=== PATIENT | female | born 1960 | race Caucasian/White ===

== ENCOUNTER → 2017-02-12 | Day surgery (SDC) | payer MEDICARE, OTHER ==
[~2017-02-12] MED LIST: ATORVASTATIN CA80 MG PO; CLOP75TA PO; FOLI1TAB16 PO; FURO20TA3 PO; GABA-586 PO; HYDROmorphone 2 MG/ML VIAL IV PRN; IV RINGERS,LACTATED 1000ML 1,000 ML IV SCH; Imdur PO; LANS30CA PO; LIDOCAINE 1% 1 ML SYRINGE. ID PRN; LIDOCAINE 2% PF Vial for OR 5 ML VIAL. ONE; MORPHINE SULFATE 2 MG/ML DISP.SYRIN. IV PRN; NITR2.5C3 PO; OMEP40CA5 PO; ONDANSETRON PF 4 MG/2 ML VIAL. IV PRN; OXYB5TAB7 PO; PREG75CA PO; PROCHLORPERAZINE 10 MG/2 ML VIAL. IV PRN; PROPOFOL 40 ML IV ONE; TETRACAINE 0.5% OPHTH SOLUTION 4ML BOTTLE. OD ONE; fentaNYL PF VIAL 100 MCG/2 ML VIAL IV PRN
[2017-02-12 08:51] VITALS: BP 94/63
--- NOTE | 2017-02-13 03:07 | HP ---
ADMIT DATE: 02/12/2017 REFERRING PHYSICIAN: Len Olivia MD HISTORY OF PRESENT ILLNESS: A 56-year-old female whose past medical history is significant for hypothyroidism, gastroesophageal reflux disease as well as hyperlipidemia, organic heart disease, is seen with dysphagia. She has had increased difficulties with solids in the past 6 weeks and ____ location. Reflux has been controlled with Prevacid 30 mg daily. She does not drink or smoke at this time, but does use caffeine. She has risk factors for reflux. Previous labs including thyroid function tests and complete metabolic profile were without significant abnormalities. She also notes diarrhea with meals. There has been no ____ travel while work or consumption of recent antibiotics. She has lost 21 pounds in the past month. There has been no bleeding. There is no family history of colon cancer or colon polyps. With the continued symptoms, she requests additional evaluation. PAST MEDICAL HISTORY: Hyperlipidemia, organic heart disease, gastroesophageal reflux disease, hypertension. ALLERGIES: None. MEDICATIONS: Include atorvastatin, Plavix, folic acid, furosemide, gabapentin, pravastatin, nitroglycerin, oxybutynin, Lyrica and Imdur. SOCIAL HISTORY: She is an ex-smoker. FAMILY HISTORY: Noncontributory. REVIEW OF SYSTEMS: Per records. PHYSICAL EXAMINATION: GENERAL: Reveals a well-nourished, well-developed female who is alert and conversant, in no acute distress. VITAL SIGNS: Temperature is 97.7, pulse 97, respirations 20. HEENT: Normocephalic and atraumatic head. Pupils and extraocular muscles not tested. Sclerae anicteric. NECK: Supple. LUNGS: Clear. CARDIOVASCULAR: Reveals S1, S2 without S3, S4 or appreciable murmur. ABDOMEN: Reveals a soft abdomen, normal bowel sounds without appreciable hepatosplenomegaly with epigastric tenderness to deep palpation. EXTREMITIES: Reveals no cyanosis, clubbing or edema. IMPRESSION AND PLAN: 1. Dysphagia with heartburn. Differential includes Schatzki's ring, eosinophilic esophagitis secondary to Neely's malignancy as well as extrinsic compression. We will recommend upper endoscopy to further assess her symptoms, possible biopsy and dilatation. Risks and benefits of procedure have been discussed with the patient who is willing to proceed at this time. 2. Diarrhea, weight loss. Differential includes celiac, inflammatory bowel disease, malabsorption, colon polyps, colon cancer among others, collagenous colitis. Therefore, I recommend colonoscopy to further assess. Risks and benefits have been discussed with the patient who is willing to proceed at this time. I would like to thank Dr. Olivia for allowing us to consult and participate in the patient's care. SAIMA TINSLEY MD DR: YELITZA/nova JOB#: [id number] / [id number] LEN Michaels MD
--- NOTE | 2017-02-13 07:02 | ACF ---
Admit Criteria Forms Admit Criteria Forms Admit Criteria Forms ABDOMINAL PAIN Clinical Indications for Admission to Inpatient Care (Place 'X' for any and all applicable criteria): Admission is indicated for ANY ONE of the following(1)(2)(3)(4)(5): [X]I. Inpatient admission required rather than observation care (Also use Abdominal Pain: Observation Care, as appropriate) because of ANY ONE of the following: [X]a) Severe pain requiring acute inpatient management [ ]b) Identification of etiology/finding that requires inpatient care (eg, aortic dissection, free air) [ ]c) Absent bowel sounds with complete ileus(6) [ ]d) Suspected toxic megacolon [ ]e) Severe electrolyte abnormalities requiring inpatient care [ ]f) High fever or infection requiring inpatient admission as indicated by ANY ONE of following(7)(8): [ ] i) Appropriate outpatient or observational care antimicrobial treatment unavailable, not effective, or not feasible [ ] ii) Documented bacteremia [ ] iii) Temperature > 104.9 degrees F (oral) [ ] iv) T >103.1 F (oral) or < 96.8 F(rectal) that does not respond to all emergency treatment measures [ ]g) Signs of intestinal obstruction [B] [ ]h) Hemodynamic instability [ ]i) IV fluid to replace significant ongoing losses (greater than 3 L/m2 per day) (12)(13) [ ]j) Percutaneous or open drainage (eg, abscess, biliary tract ) procedures [ ]k) Parenteral nutrition regimen that must be implemented on inpatient basis [ ]l) Other condition,treatment or monitoring requiring inpatient admission. [ ]II. Peritoneal signs present [ ]III. Surgery needed that cannot be performed on an ambulatory basis. [ ]IV. Evaluation requires patient to not eat or drink for extended period ( eg, more than 24 hours). [ ]V. Contraindications and/or Inappropriate clinical situations for Observational Care in patients with abdominal pain, when ANY ONE of the following is required: [ ]a) Thorough evaluation is required to prevent catastrophic events due to delays in diagnosing (e.g.Mesenteric ischemia) 1,3 [ ]b) Patient with severe pathology or with chronic symptoms unlikely to improve in the ED stay (3) [ ]. General contraindications and/or Inappropriate clinical situations for Observational Care in patients with abdominal pain, when ANY ONE of the following is required: [ ]a) Prediction of prolongation of LOS based on ANY ONE of the following may be considered as a contraindication for observational care 2, 3, 4, 5, 6, 7, 8, 9, 10, 11 [ ]i) Age > 65 yrs. [ ]ii) Patient arriving by ambulance [ ]iii) Patient with high acuity [ ]iv) Patient requiring vital sign monitoring [ ]v) Patient on IV medication [ ]b) Systolic blood pressures 180mmHg 3,12 [ ]c) Patient with altered mental status including delirium and other alteration of consciousness, (3) [ ]d) Patient whose discharge disposition will be to a assisted home or rehabilitation home should not be managed in Emergency Department Observation Unit. CMS rule requires 3 days hospital stay before such placement.3,13 [ ]e) Patient with failure to thrive due to broad array of etiologies 3,16,17 [ ]f) Inability to ambulate 3,14 Extended stay beyond goal length of stay may be needed for(2)(3): [ ]a) Persistent abdominal pain with suspected intra-abdominal process [ ]b) Diagnosed condition requiring continued stay (e.g., pancreatitis, complicated diverticulitis) [ ]c) Surgery (e.g., colectomy) The original [employer] content created by [employer] has been revised. The portions of the content which have been revised are identified through the use of italic text or in bold, and [facility] has neither reviewed nor approved the modified material.All other unmodified content is copyright [employer]. Please see references footnoted in the original [facility] edition 2016 MERCEDES HART Feb 13, 2017 07:02
--- NOTE | 2017-02-14 11:23 | PATHOLOGY ---
PATHOLOGY REPORT * * * * * * * * FINAL DIAGNOSIS: A. Duodenum, "duodenal biopsy rule out celiac disease": - Mild chronic non-specific duodenitis with mildly increased lamina propria inflammation. - The villous pattern is not blunted and diagnostic features of sprue are not seen. B. Colonic mucosa, "random colon biopsy": - Findings consistent with microscopic colitis. COMMENT: The colonic mucosa reveals increased lamina propria inflammation with increased intraepithelial lymphocytes. Rare crypts reveal occasional neutrophils. These findings are consistent with microscopic colitis. Due to the presence of few neutrophils in the crypts, focal active/infectious colitis is also in the differential. Early inflammatory bowel disease cannot be entirely ruled out. Suggest clinical and radiological correlation. ([facility]; d/t: 02/14/17) REPORT ELECTRONICALLY SIGNED BY: Michael Arnold M.D. DATE/TIME: 02/14/2017 11:22 * * * * * * * * GROSS PATHOLOGY: A. Received in formalin labeled "Anastasia Bell, duodenal biopsy, rule out celiac," are seven segments of calderon soft tissue measuring 1.0 x 1.0 x 0.2 cm in aggregate dimensions and ranging from 0.1 to 0.4 cm in maximum dimension. The specimen is submitted entirely in cassette A1. B. Received in formalin labeled "Anastasia Bell, random colon biopsy," are multiple (greater than 10) segments of calderon soft tissue measuring 1.4 x 0.7 x 0.3 cm in aggregate dimensions and ranging from 0.1 to 0.6 cm in maximum dimension. The specimen is submitted entirely in cassette B1. ([facility]; 02/13/2017) INITIAL CPT CODE(S): A; 50814 B; 30031 Professional services performed by [facility] at [address] [address] Technical services performed by [facility] at [address] [place] [address], [address], [place] [address]. SPECIMEN(S) RECEIVED: A.Duodenal biopsy, r/o celiac B.Random colon biopsy CLINICAL HISTORY: Abdominal pain, r/o celiac PATIENT: ANASTASIA BELL /AGE: 502/23/1960 (Age: 56) PATIENT #: [id number] ALT CASE #: SPECIMEN COLLECTION DATE: 02/12/2017 SPECIMEN RECEIVED DATE: 02/12/2017 [facility] - [id number] [address] - PHONE: [phone] * * * END OF REPORT * * *
== END | disposition home or self-care (01) ==
LOC: ENDOS 06:25
PROVIDERS: ATTEND Internal Medicine Gastroenterology
DX: K64.0 First degree hemorrhoids (principal); K22.2 Esophageal obstruction; K29.50 Unspecified chronic gastritis without bleeding; E78.00 Pure hypercholesterolemia, unspecified; J44.9 Chronic obstructive pulmonary disease, unspecified; M19.90 Unspecified osteoarthritis, unspecified site
CPT/HCPCS: 43239; 43450; 45380; 88305; 99156; 99157; J2704

== ENCOUNTER → 2019-09-07 | Outpatient (CLI) | payer MEDICARE, OTHER ==
[2017-02-12 08:51] VITALS: BP 94/63
[~2019-09-07] MED LIST changes: +BUPIVACAINE MPF 0.5% 10 ML VIAL for KCIC. IM ONE; -GABA-586 PO; +GABA300C18 PO; -HYDROmorphone 2 MG/ML VIAL IV PRN; +IOHEXOL 300 MG/ML 50 ML VIAL. INT ART ONE; -IV RINGERS,LACTATED 1000ML 1,000 ML IV SCH; -LIDOCAINE 1% 1 ML SYRINGE. ID PRN; +LIDOCAINE 1% Multi-Dose 20 ML VIAL. ID ONE; -LIDOCAINE 2% PF Vial for OR 5 ML VIAL. ONE; -MORPHINE SULFATE 2 MG/ML DISP.SYRIN. IV PRN; +OMEP40CA45 PO; -OMEP40CA5 PO; -ONDANSETRON PF 4 MG/2 ML VIAL. IV PRN; +OXYB5TAB10 PO; -OXYB5TAB7 PO; -PROCHLORPERAZINE 10 MG/2 ML VIAL. IV PRN; -PROPOFOL 40 ML IV ONE; -TETRACAINE 0.5% OPHTH SOLUTION 4ML BOTTLE. OD ONE; -fentaNYL PF VIAL 100 MCG/2 ML VIAL IV PRN; +methylPREDNISolone ACETATE 40 MG/ML VIAL. INT ART ONE
--- NOTE | 2019-09-07 15:20 | KCIC ---
EXAM: FLUOROSCOPY GUIDED RIGHT HIP steroid injection History: Degenerative changes, pain COMPARISON: None available TECHNIQUE: Consent: An informed consent was obtained from the patient prior to the procedure. Appropriate time out procedures were performed. The skin was prepped and draped in the usual fashion under aseptic precautions. 1% lidocaine was utilized for local anesthesia. Under fluoroscopic guidance a 22 gauge long spinal needle was used to access the hip joint. A mixture of 4 mL lidocaine, 4 mL of Omnipaque 300, 4 mL of bupivacaine and 80 mg of Depo-Medrol was injected. 22 seconds of total fluoroscopy time was utilized. Total fluoroscopic images 1. No immediate complications. IMPRESSION: Technically successful fluoroscopic-guided right hip arthrogram Electronically signed by: Juan Francisco Rosas MD (09/07/2019 3:17 PM) [facility]2
== END | disposition home or self-care (01) ==
LOC: KCIC 12:38
PROVIDERS: ATTEND Orthopaedic Surgery Sports Medicine
DX: M25.551 Pain in right hip (principal)
CPT/HCPCS: 20610; 77002; J1030; Q9967

== ENCOUNTER → 2019-10-07 | Outpatient (CLI) | payer MEDICARE, OTHER ==
[2017-02-12 08:51] VITALS: BP 94/63
[~2019-10-07] MED LIST changes: -BUPIVACAINE MPF 0.5% 10 ML VIAL for KCIC. IM ONE; -IOHEXOL 300 MG/ML 50 ML VIAL. INT ART ONE; -LIDOCAINE 1% Multi-Dose 20 ML VIAL. ID ONE; +NITR2.5C12 PO; -NITR2.5C3 PO; -methylPREDNISolone ACETATE 40 MG/ML VIAL. INT ART ONE
--- NOTE | 2019-10-07 13:07 | KCIC ---
MRI Lumbar Spine without contrast History: Lumbar degenerative disc disease with previous surgery, low back pain into the kidneys bilaterally Technique: Multiplanar, multi sequential noncontrast MR imaging was performed of the lumbar spine. Comparison: February 28, 2016 Findings: Lumbar vertebral body stature is maintained. Mild grade 1 anterior spondylolisthesis at L3-4 is slightly greater. There is moderate to severe degenerative disease greater on the left at L4-5 with associated endplate changes seen previously, mild degenerative disc disease at L3-4, and mild disc desiccation L1-2. Conus terminates at T12-L1. There is no significant marrow edema. There is again likely hemangioma of the posterior left L2 vertebral body. L1-L2: Spinal canal and neural foramina are adequate. L2-L3: There is prominence of posterior epidural fat centrally and mild facet degenerative change. There is negligible posterior bulge. Spinal canal is overall adequate. Neural foramina are adequate. L3-L4: There is moderate to severe facet degenerative change and jhmv-bd-ndqzbcrq buckling of the ligamentum flavum. There is partial uncovering of the posterior aspect of the disc due to spondylolisthesis. There is somewhat increased overall moderate spinal stenosis including narrowing of the lateral recesses bilaterally greater on the left. Left neural foramen is adequate. There is mild narrowing of the right neural foramen. L4-L5: There again has been right laminectomy There is again negligible posterior bulge. There is facet degenerative change. There is similar mpfe-cy-ebhlnohj narrowing of the far lateral recess, very mild narrowing of the far right lateral recess. Right neural foramen is adequate. There is again feyo-io-gthsddjc narrowing of the left neural foramen. L5-S1: There is minimal buckling of the ligamentum flavum and facet degenerative change. There is again prominence of epidural fat in the lateral recesses bilaterally. Spinal canal is overall adequate. There is minimal narrowing of the left neural foramen, right neural foramen overall adequate. Impression: 1. Comparing with the 2016 exam, minimal grade 1 anterior spondylolisthesis L3-4 is somewhat greater, increased overall moderate spinal stenosis at this level. There is similar absy-do-jkknsuuw narrowing of the far left lateral recess at L4-5, minimal narrowing of the far right lateral recess at this level. There is again uaxk-ws-txriokhe narrowing of the left L4-5 neural foramen. There is degenerative disc disease greatest at L4-5. Electronically signed by: Thor Gottlieb MD (10/07/2019 1:04 PM) [facility]1
== END | disposition home or self-care (01) ==
LOC: KCIC MRI 12:04
PROVIDERS: ATTEND Orthopaedic Surgery Sports Medicine
DX: M43.16 Spondylolisthesis, lumbar region (principal); M51.36 Other intervertebral disc degeneration, lumbar region; M48.07 Spinal stenosis, lumbosacral region; Z90.49 Acquired absence of other specified parts of digestive tract
CPT/HCPCS: 72148

== ENCOUNTER → 2019-11-11 | Outpatient (CLI) | payer MEDICARE, OTHER ==
[2017-02-12 08:51] VITALS: BP 94/63
[~2019-11-11] MED LIST changes: +ASPI81TA50 PO; +CHOL200059 PO; +FOLI0.8C PO; +IBUP-1027 PO; +ISOS60TA2 PO; +LEVO50TA5 PO; +NIAC500C6 PO; +SULF500T36 PO
--- NOTE | 2019-11-11 17:14 | PAIN ---
DATE OF SERVICE: 11/11/2019 INITIAL CONSULTATION FOR PAIN CLINIC CHIEF COMPLAINT: Low back and right greater than left lower extremity pain. HISTORY OF PRESENT ILLNESS: This is a 59-year-old female who presents with history of pain for about 1 year or so in the bilateral hips, worse on the right than the left and radiating into the lower extremities. The patient has been worked up with her orthopedic surgeon with x-rays and treatment. She has had intra-articular hip joint injections in the past without help significantly. She had some here recently, which were not helpful at all. The patient reports she has been to physical therapy as well, which is not helpful and is difficult to do some of the exercises because of the pain in the back and the leg, mostly in the right lower extremity, but also in the left, across the low back into the both posterior hips, lateral anterior thighs, anterior medial thigh, medial lower leg, medial groin on the right side into the anterior aspect of the lower legs to the ankles. The patient reports right hip is worse. She does have a right hip injection, which was not helpful as noted. The patient did have MRI scan of the lumbar spine after that, however, and shows previous surgery at L4-L5 and compared with the ____ 2016, spondylolisthesis at L3-L4, somewhat greater increased overall moderate spinal stenosis at L3-L4 level somewhat in qxxc-vs-hiymbtwg narrowing of the far left lateral recess at L4 foramen, minimal narrowing of the far right lateral recess at that level and again mild to moderate narrowing of the left L4-L5 neural foramen with degenerative disk disease, greatest at L4-L5. The patient reports a disability rating from 0-10, 10 being the worst, is an 8 with family and home responsibilities, recreation and life support activities, 6 with social activity and sexual behavior, 7 with occupational activity, 4 with self-care activities. The patient reports the pain awakens her from sleep at least every 20 minutes at night, does not affect her bowel or bladder control, but does affect her ability to walk. She is not using any assistive devices, however she has again been through physical therapy, was not helpful and doing exercise currently, which is not helping decrease the pain significantly. The patient reports no loss of motor function, but significant fatigability of the lower extremities, especially on the right side with walking, better with sitting or lying down, but again waking her from sleep frequently. PAST MEDICAL HISTORY: Significant for hypothyroidism, COPD, coronary artery disease with stents placed in 2012, gastroesophageal reflux, colitis, falls, fibromyalgia, dry skin. PREVIOUS SURGERY: Includes sinus surgery, cholecystectomy and lumbar laminectomy in 2012 at L4-L5. CURRENT MEDICATIONS: Include levothyroxine, daily baby aspirin, vitamin D3, folic acid, isosorbide, nitroglycerin p.r.n. ice and ibuprofen, folic acid, sulfasalazine, Plavix, atorvastatin, oxybutynin and lansoprazole. ALLERGIES: The patient has no known drug allergies. FAMILY HISTORY: Significant for heart disease and diabetes. SOCIAL HISTORY: The patient drinks alcohol about 3 alcoholic drinks a week, does not smoke, does not use any illegal, illicit or recreational drugs. Lives with her spouse, lives locally in [place], [place]. REVIEW OF SYSTEMS: Negative except for those items mentioned in history of present illness. All systems are reviewed and is otherwise negative. It is complete, full and well documented on the patient's chart. PHYSICAL EXAMINATION: VITAL SIGNS: The patient's blood pressure is 143/70, pulse is 77, respirations 16, temperature 97.2 degrees Fahrenheit, height is 5 feet 6 inches, weight is 210 pounds. GENERAL: The patient is awake, alert, oriented, appropriate, very pleasant demeanor. HEENT: Shows normocephalic, atraumatic. Extraocular movements are intact and symmetrical. Oral cavity: Mucous membranes moist and pink. Dentition is intact. NECK: Shows anterior throat supple without palpable lymphadenopathy noted. Swallow reflex symmetrical. CHEST: Shows normal on inspection. Breath sounds clear to auscultation bilaterally. HEART: Shows S1, S2 clear. No murmurs auscultated. ABDOMEN: Soft, nontender, nondistended. No palpable organomegaly is noted. No rebound or guarding demonstrated. BACK: Shows spine grossly in the midline. Normal appearing thoracic kyphosis, some minor flattening of lumbar lordotic curvature. Lumbar paraspinous muscle shows symmetrical on inspection, on palpation shows some moderate tenderness diffusely bilaterally and has a well-healed surgical scar in the midline. No specific trigger points or radiation. No atrophy, hypertrophy, no asymmetry. The patient shows no tenderness over the spinous processes, sacrum or sacroiliac regions. The patient has good rotational motion of lumbar spine, laterally greater than 10 degrees right and left as well as extension greater than 10 degrees, forward flexion at 45 degrees without significant pain reported. EXTREMITIES: Lower extremities show deep tendon reflexes at 1+ in the patellar and tendo calcaneus tendons. Motor exam is strong with 5/5 dorsiflexion, extension, quadriceps and hamstring flexion. Peripheral pulses are 1+ posterior tibia. No peripheral edema is noted. Lower extremities are warm and dry to touch, equal in color and appearance. Straight leg raise noted to be negative for reproduction of radicular symptoms bilaterally. Gaenslen's and Pierce's maneuvers are grossly negative as well bilaterally. The patient is able to stand, stand on her toes without significant difficulty or loss of balance, walks with a normal-appearing gait, does not appear to favor the right lower extremity significantly, not using any assistive devices. SKIN: The patient's skin shows warm and dry, good turgor. No edema. No rashes or bruises. IMPRESSION: 1. This is a 59-year-old female with about 1-year history of increasing pain, right greater than left hips and lower extremities. 2. MRI scan of lumbar spine as noted. 3. Hypertension. 4. Chronic obstructive pulmonary disease. 5. Arthritis. 6. Fibromyalgia. PLAN: Options were discussed with the patient and the patient's spouse who accompanies her to visit today. We discussed conservative medical managements, continued physical therapies, interventional techniques. She would like to pursue interventional techniques as she is doing physical therapy and still doing exercises without significant benefit. We discussed a lumbar epidural steroid injection using description as well as anatomical models to describe the procedure. The patient will return after clearance is obtained from her wheelchair driver; however, to hold Plavix for 7 days. If this is deemed safe and appropriate, we will have her hold this and return for lumbar epidural steroid injection at that time. EMILIANO MALDONADO MD DR: JENNIFER/nova JOB#: [id number] / [id number] EZRA Michaels MD
== END | disposition home or self-care (01) ==
LOC: PNCL 09:01
PROVIDERS: ATTEND Anesthesiology
DX: M43.16 Spondylolisthesis, lumbar region (principal); M48.061 Spinal stenosis, lumbar region without neurogenic claudication; M79.605 Pain in left leg; M54.5 Low back pain; M79.604 Pain in right leg; M51.36 Other intervertebral disc degeneration, lumbar region; E03.9 Hypothyroidism, unspecified; J44.9 Chronic obstructive pulmonary disease, unspecified; I25.10 Atherosclerotic heart disease of native coronary artery without angina pectoris; K21.9 Gastro-esophageal reflux disease without esophagitis; Z90.49 Acquired absence of other specified parts of digestive tract
CPT/HCPCS: G0463

== ENCOUNTER → 2019-11-19 | Outpatient (CLI) | payer MEDICARE, OTHER ==
[2017-02-12 08:51] VITALS: BP 94/63
[~2019-11-19] MED LIST changes: +IOHEXOL 180 MG/ML 10 ML VIAL. ONE; +methylPREDNISolone ACETATE 40 MG/ML VIAL. ONE; +methylPREDNISolone ACETATE 80 MG/ML VIAL. ONE
--- NOTE | 2019-11-19 11:00 | PAIN ---
DATE OF SERVICE: 11/19/2019 PROGRESS NOTE FOR PAIN CLINIC DIAGNOSES: Lumbar radiculopathy with lumbar degenerative disk disease, lumbar spinal stenosis and lumbar post-laminectomy syndrome. HISTORY OF PRESENT ILLNESS: The patient is a 59-year-old female who returns for followup status post initial evaluation and holding her Plavix now for 7 days for lumbar epidural steroid injection today, the patient would like to proceed, reports still pain in the low back and into the bilateral lower extremities, posterior gluteus, posterolateral thigh, lateral anterior thigh, medial thigh, medial left groin. The patient reports it is aching, sharp, dull, shooting, burning, cramping across the low back, stabbing in the legs, on and off in intensity, worse with activity, standing, walking, changing positions. The patient reports it is a 9 on a scale of 10 at its worst in the past week, 7 on average, 3 at its least and is a 7 today. The patient reports no new motor or sensory deficits, no new bowel or bladder incontinence, awakens her from sleep occasionally. She can easily reposition and get back to sleep. PHYSICAL EXAMINATION: VITAL SIGNS: The patient's blood pressure 166/103, pulse 71, respirations 16, temperature 98.1 degrees Fahrenheit, height is 5 feet 6 inches, weight is 210 pounds. GENERAL: The patient is awake, alert, oriented, appropriate, very pleasant demeanor. HEENT: Shows normocephalic, atraumatic. Extraocular movements are intact and symmetrical. Oral cavity: Mucous membranes moist and pink. Dentition is intact. NECK: Shows anterior throat supple without palpable lymphadenopathy noted. Swallow reflex symmetrical. CHEST: Shows normal on inspection. Breath sounds are clear to auscultation bilaterally. HEART: Shows S1, S2 clear. No murmurs auscultated. ABDOMEN: Soft, nontender, nondistended. No palpable organomegaly is noted. No rebound or guarding demonstrated. BACK: Shows spine grossly in the midline. Normal appearing thoracic kyphosis and minor flattening of lumbar lordotic curvature with well-healed surgical scarring noted. The patient's back shows good rotation of motion, however, both laterally as well as extension and flexion without significant increase in pain. EXTREMITIES: The patient's lower extremities show deep tendon reflexes 1+ in the patellar and tendo calcaneus tendons. Motor exam is strong with 5/5 dorsiflexion, extension, quadriceps and hamstring flexion symmetrical. Peripheral pulses are 1+ posterior tibia. No peripheral edema is noted bilaterally. Options were discussed with the patient. The patient's old chart was reviewed as her current medication regimen updated. Current review of systems updated today as well. We will proceed with a lumbar epidural steroid injection today with fluoroscopic guidance. Risks were again discussed including, but not limited to bleeding, infection, possibility of epidural hematoma, subsequent neurological compromise, dural puncture, headaches, spinal cord and/or nerve damage, side effects of steroid medication and poor results regarding pain control. The patient understands and wished to proceed. The patient will return to clinic in approximately 2 weeks for followup. She was counseled on return appointment, activity level and side effects to be aware of. DIAGNOSES: Lumbar radiculopathy with lumbar degenerative disk disease, lumbar spinal stenosis and post-lumbar laminectomy syndrome. PROCEDURE: Lumbar epidural steroid injection, translaminar approach L3-L4 level using C-arm fluoroscopic guidance under sterile prep and drape using local anesthetic. MEDICATION INJECTED: A total of 120 mg Depo-Medrol plus 10 mL of preservative-free normal saline and 2 mL of contrast. CONDITION AT DISCHARGE: Stable. The patient tolerated the procedure well, had no complications. EMILIANO MALDONADO MD DR: JENNIFER/nova JOB#: [id number] / [id number]
== END | disposition home or self-care (01) ==
LOC: PNCL 08:57
PROVIDERS: ATTEND Anesthesiology
DX: M51.16 Intervertebral disc disorders with radiculopathy, lumbar region (principal); M48.061 Spinal stenosis, lumbar region without neurogenic claudication; M96.1 Postlaminectomy syndrome, not elsewhere classified; Z98.890 Other specified postprocedural states
CPT/HCPCS: 62323; J1030; J1040; Q9965

== ENCOUNTER → 2020-03-08 | Outpatient (CLI) | payer MEDICARE, OTHER ==
[2017-02-12 08:51] VITALS: BP 94/63
[~2020-03-08] MED LIST changes: -NITR2.5C12 PO; +NITR2.5C8 PO; +PREG-9 PO; -PREG75CA PO
--- NOTE | 2020-03-08 10:04 | PAIN ---
DATE OF SERVICE: 03/08/2020 PROGRESS NOTE FOR PAIN CLINIC DIAGNOSES: Lumbar radiculopathy with lumbar degenerative disk disease and lumbar spinal stenosis, lumbar post-laminectomy syndrome. HISTORY OF PRESENT ILLNESS: The patient is a 60-year-old female who returns for followup status post lumbar epidural steroid injection x 1 on 11/19/2019. The patient reports she did very well with about 70-80% improvement. Pain is returning now over the past few weeks in the low back and right greater than left lower extremity, mostly in the anterior thigh, anterior medial thighs and groin on the right side as well as into the lower leg and knee, but mostly on the right, but present bilaterally. The patient reports it is aching, sharp, shooting into the legs, stabbing in the back, radiating at times and grabbing as well. The patient reports it is a 9 on a scale of 10 at its worst over the past week, 8 on average, 6 at its least and is a 6 today. The patient reports no new motor or sensory deficits. Initially, she was doing much better with walking, doing work activities, household activities, traveling with greater ease and comfort. The patient reports it awakens her from sleep, but not more than once about every 6 hours per night. The patient reports no new motor or sensory deficits, no bowel or bladder incontinence or other complaints. PHYSICAL EXAMINATION: VITAL SIGNS: The patient's blood pressure 186/91, pulse 75, respirations 18, temperature 98.2 degrees Fahrenheit, height is 5 feet 6 inches, weight is 218 pounds. GENERAL: The patient is awake, alert, oriented, appropriate, very pleasant demeanor. HEENT: Shows normocephalic, atraumatic. Extraocular movements are intact and symmetrical. Oral cavity shows mucous membranes moist and pink. Dentition is intact. NECK: Shows anterior throat supple without palpable lymphadenopathy noted. Swallow reflex symmetrical. CHEST: Shows normal on inspection. Breath sounds clear to auscultation bilaterally. HEART: Shows S1, S2 clear. No murmurs auscultated. ABDOMEN: Soft, nontender, nondistended. No palpable organomegaly is noted. No rebound or guarding demonstrated. BACK: Shows spine grossly in the midline. Normal appearing thoracic kyphosis and lumbar lordotic curvature is slightly flattened with well-healed surgical scar noted. Lumbar paraspinous muscle shows symmetrical on inspection, on palpation shows some moderate tenderness diffusely bilaterally, but only diffusely without significant radiation. The patient has good rotational motion of lumbar spine, both laterally as well as extension and flexion without difficulty. EXTREMITIES: Lower extremities show deep tendon reflexes 1+ in the patellar and tendo calcaneus tendons. Motor exam is strong with 5/5 dorsiflexion, extension, quadriceps and hamstring flexion and symmetrical. Peripheral pulses are 1+ in the peripheral or in the posterior tibial. No peripheral edema bilaterally. Options were discussed with the patient. The patient's old chart was reviewed as her current medication regimen updated. Current review of systems updated today as well. We will proceed with a second in the series of lumbar epidural steroid injection today with fluoroscopic guidance. Risks were again discussed including, but not limited to bleeding, infection, possibility of epidural hematoma, subsequent neurological compromise, dural puncture, headaches, spinal cord and/or nerve damage, side effects of steroid medication and poor results regarding pain control. The patient understands and wished to proceed. The patient will return to clinic in approximately 2 weeks for followup. She was counseled on return appointment, activity level and side effects to be aware of. DIAGNOSES: Lumbar radiculopathy with lumbar degenerative disk disease, lumbar spinal stenosis and lumbar post-laminectomy syndrome. PROCEDURE: Lumbar epidural steroid injection, translaminar approach at the L3-L4 level using C-arm fluoroscopic guidance under sterile prep and drape using local anesthetic. MEDICATION INJECTED: A total of 120 mg Depo-Medrol plus 10 mL of preservative-free normal saline and 2 mL of contrast. CONDITION AT DISCHARGE: Stable. The patient tolerated the procedure well, had no complications. EMILIANO MALDONADO MD DR: JENNIFER/nova JOB#: [id number] / [id number]
== END | disposition home or self-care (01) ==
LOC: PNCL 09:00
PROVIDERS: ATTEND Anesthesiology
DX: M51.16 Intervertebral disc disorders with radiculopathy, lumbar region (principal); M48.061 Spinal stenosis, lumbar region without neurogenic claudication; M96.1 Postlaminectomy syndrome, not elsewhere classified
CPT/HCPCS: 62323; J1030; J1040; Q9965

== ENCOUNTER → 2020-07-14 | Outpatient (CLI) | payer MEDICARE, OTHER ==
[2017-02-12 08:51] VITALS: BP 94/63
--- NOTE | 2020-07-14 12:02 | PDOC ---
Progress Note - Pain Clinic Date of Service: DOS: DATE: 07/14/20 TIME: 11:59 Diagnosis: Dx: Lumbar radiculopathy with lumbar degenerative disc disease lumbar spinal stenosis and post lumbar laminectomy syndrome History or Present Illness: HPI: 60-year-old female returns follow-up status post lumbar epidurals injection x1. Last seen March 08, 2020. Patient reports he did very well about 90% improvement in the low back and bilateral lower extremity pain. Patient reports pain is been returning now over about the past 4 to 5 weeks in the low back bilateral lower extremities posterior gluteus posterior lateral thighs lateral anterior thighs anterior lower legs as well as some in the calves. Patient describes the pain is aching sharp and dull tingling burning cramping in the back with radiating pain that can be severe and constant with walking standing changing positions. Initially she was doing much better with distance walking doing household activities work activities traveling with greater ease and comfort, but now the pain is returning still does not awaken her from sleep at night much better with sitting or laying down. Patient reports no new motor or sensory deficits no new bowel or bladder incontinence reports her pain is a 9 on scale 10 is worse over the past week 8 on average for this least is a 5 today Physical Exam: VS: Blood pressure is 157/103 pulse 69 respirations 18 temperature 90.1 F height is 5 feet 6 inches weight is 202 pounds PE: PHYSICAL EXAMINATION: GENERAL: The patient is awake, alert, oriented, appropriate, very pleasant demeanor HEENT: Shows normocephalic, atraumatic. Extraocular movements are intact and symmetrical. NECK: Shows anterior throat supple without palpable lymphadenopathy noted. Swal low reflex symmetrical. CHEST: Shows normal on inspection. Breath sounds are clear bilaterally, no rales rhonchi wheezes auscultated. HEART: Shows S1, S2 clear. No murmurs auscultated. ABDOMEN: Soft, nontender, nondistended, obese. No palpable organomegaly is noted. No rebound or guarding demonstrated. BACK: Shows spine grossly in the midline. Normal-appearing cervical lordotic curvature. There is slightly increased thoracic kyphosis, some minor flattening of the lumbar lordotic curvature. Lumbar paraspinous muscles show symmetrical on inspection, on palpation shows some moderate tenderness diffusely throughout the upper, middle and lower distribution of the paraspinous muscles bilaterally, but without specific trigger points, without radiation of pain. The patient has good rotational motion of the lumbar spine, both laterally as well as extension and flexion without significant difficulty. No tenderness over the spinous processes, sacrum or sacroiliac regions. EXTREMITIES: Lower extremities show deep tendon reflexes 1+ in the patellar and tendo calcaneus tendons. Motor exam is 5 on a scale of 5 with right dorsiflexion, extension, quadriceps and hamstring flexion and 5/5 on the left. Peripheral pulses are 1+ posterior tibial. No peripheral edema is noted bilaterally. Lower extremities are warm and dry to touch, equal in color and appearance. SKIN: Shows warm and dry, good turgor. No edema. No sores, rashes or bruising throughout. Procedure: Procedure: Options were discussed with the patient. Patient will chart reviews her current medication regimen updated current review of systems updated today as well. We will proceed with a lumbar epidural steroid injection today with fluoroscopic guidance. Risks were discussed including but not limited to: Bleeding, infection, possibility of epidural hematoma and subsequent neurological compromise, dural puncture, headaches, spinal cord and/or nerve damage, side effects of steroid medication, and poor results regarding pain control. Patient understands wished to proceed. Patient will return to the clinic in approximate 2 weeks for follow-up. Patient was counseled as return appointment activity level and side effects to be aware of. Medication Injected: Med Injected: Procedure is lumbar epidural steroid injection under local anesthetic using sterile prep and drape at the L4-5 level using C-arm fluoroscopic guidance in both AP and lateral views medications injected is 120 mg Depo-Medrol + 10 mL preservative-free normal saline and 2 mL contrast- condition at discharge is stable patient tolerated procedure well had no complications. Condition at Discharge: Condition at Discharge: Patient discharged stable patient tolerated the procedure well and had no complications. EMILIANO MALDONADO MD Jul 14, 2020 12:02
== END | disposition home or self-care (01) ==
LOC: PNCL 10:34
PROVIDERS: ATTEND Anesthesiology
DX: M51.16 Intervertebral disc disorders with radiculopathy, lumbar region (principal); M48.061 Spinal stenosis, lumbar region without neurogenic claudication; K21.9 Gastro-esophageal reflux disease without esophagitis; J44.9 Chronic obstructive pulmonary disease, unspecified; E03.9 Hypothyroidism, unspecified; Z79.899 Other long term (current) drug therapy
CPT/HCPCS: 62323; J1030; J1040; Q9965

== ENCOUNTER → 2020-07-24 | Outpatient (CLI) | payer MEDICARE, OTHER ==
[2017-02-12 08:51] VITALS: BP 94/63
[~2020-07-24] MED LIST changes: -IOHEXOL 180 MG/ML 10 ML VIAL. ONE; -methylPREDNISolone ACETATE 40 MG/ML VIAL. ONE; -methylPREDNISolone ACETATE 80 MG/ML VIAL. ONE
--- NOTE | 2020-07-24 13:31 | CARD ---
MR#: [id number] Date of Study: 07/24/2020 Ordering Physician: OSMAN BYRNES, Referring Physician: OSMAN BYRNES, Tech: Alee Will SALEEM APPROVED REPORT EXAM: Two-dimensional and M-mode echocardiogram with Doppler and color Doppler. Other Information Quality : Good INDICATION Cardiac Disease: CAD 2D DIMENSIONS RVDd2.5 (2.9-3.5cm)Left Atrium(2D)3.6 (1.6-4.0cm) IVSd1.0 (0.7-1.1cm)Aortic Root(2D)2.5 (2.0-3.7cm) LVDd4.8 (3.9-5.9cm)LVOT Diameter2.3 (1.8-2.4cm) PWd1.0 (0.7-1.1cm)LVDs3.3 (2.5-4.0cm) FS (%) 32.0 %SV65.0 ml LVEF(%)60.0 (>50%) Aortic Valve AoV Peak Dk.139.7cm/sAoV VTI31.5cm AO Peak GR.7.8mmHgLVOT Peak Dk.123.3cm/s AO Mean GR.4mmHgAVA (VMAX)3.68cm2 NICK (VTI)3.70cm2 Mitral Valve MV E Uhhgcped74.3cm/sMV DECEL FRON573dr MV A Emrnmear238.7cm/sE/A Ratio0.9 Pulmonary Vein S1 Qavirosb32.2cm/sD2 Godscizr99.8cm/s LEFT VENTRICLE The left ventricle is normal size. There is normal left ventricular wall thickness. The left ventricu lar systolic function is normal. The Ejection Fraction is 55-60%. There is normal LV segmental wall m otion. Transmitral Doppler flow pattern is Grade I-abnormal relaxation pattern. RIGHT VENTRICLE The right ventricle is normal size. The right ventricular systolic function is normal. ATRIA The left atrium size is normal. The right atrium size is normal. The interatrial septum is intact wit h no evidence for an atrial septal defect or patent foramen ovale as noted on 2-D or Doppler imaging. AORTIC VALVE The aortic valve is calcified but opens well. Doppler and Color Flow revealed no significant aortic r egurgitation. There is no significant aortic valvular stenosis. MITRAL VALVE The mitral valve is calcified but opens well. There is no evidence of mitral valve prolapse. There is no mitral valve stenosis. Doppler and Color Flow revealed no mitral valve regurgitation noted. TRICUSPID VALVE The tricuspid valve is normal in structure and function. Doppler and Color Flow revealed no tricuspid valve regurgitation noted. There is no tricuspid valve stenosis. PULMONIC VALVE The pulmonic valve is not well visualized. Doppler and Color Flow revealed no pulmonic valvular regur gitation. There is no pulmonic valvular stenosis. GREAT VESSELS The aortic root is normal in size. The ascending aorta is mildly dilated at 3.4 cm The IVC is dilated and collapses <50% with inspiration. PERICARDIAL EFFUSION There is no evidence of significant pericardial effusion. Critical Notification Critical Value: No <Conclusion> The left ventricular systolic function is normal. The Ejection Fraction is 55-60%. There is normal LV segmental wall motion. Transmitral Doppler flow pattern is Grade I-abnormal relaxation pattern. There is no evidence of significant pericardial effusion. Signed by : Faraz Funk, Electronically Approved : 07/24/2020 13:30:38
== END | disposition home or self-care (01) ==
LOC: ECHO 09:48
PROVIDERS: ATTEND Internal Medicine Cardiovascular Disease
DX: I08.0 Rheumatic disorders of both mitral and aortic valves (principal); I10 Essential (primary) hypertension
CPT/HCPCS: 93306

== ENCOUNTER → 2020-10-02 | Outpatient (CLI) | payer MEDICARE, OTHER ==
[2017-02-12 08:51] VITALS: BP 94/63
[~2020-10-02] MED LIST changes: +IOHEXOL 180 MG/ML 10 ML VIAL. ONE; +methylPREDNISolone ACETATE 40 MG/ML VIAL. ONE; +methylPREDNISolone ACETATE 80 MG/ML VIAL. ONE
--- NOTE | 2020-10-02 11:25 | PDOC ---
Progress Note - Pain Clinic Date of Service: DOS: DATE: 10/02/20 TIME: 11:22 Diagnosis: Dx: Lumbar radiculopathy with lumbar degenerative disc disease lumbar spinal stenosis and lumbar postlaminectomy syndrome History or Present Illness: HPI: 60-year-old female returns follow-up status post lumbar epidural steroid traction x1 this series July 14, 2020. Patient reports that pain was decreased by about 50% in the low back bilateral lower extremities but returning now especially with standing sitting or changing positions with pain low back bilateral lower extremities lateral thighs anterior thighs medial thighs to the medial knees bilaterally right essentially equal to left patient reports pain to 7 on scale 10 is worse over the past week 5 on average 3 at its least is a 5 today. Patient reports no new motor or sensory deficits no new bowel or bladder incontinence or other complaints. Patient scribes pain as aching burning cramping sharp shooting in the back and radiating to the lower extremities. Physical Exam: VS: Blood pressure is 164/92 pulse 61 respirations 18 temperature 90.5 F height is 5 feet 6 inches weight is 206 pounds PE: PHYSICAL EXAMINATION: GENERAL: The patient is awake, alert, oriented, appropriate, very pleasant demeanor HEENT: Shows normocephalic, atraumatic. Extraocular movements are intact and symmetrical. Oral cavity: Mucous membranes moist and pink. NECK: Shows anterior throat supple without palpable lymphadenopathy noted. Swallow reflex symmetrical. CHEST: Shows normal on inspection. Breath sounds clear bilaterally. HEART: Shows S1, S2 clear. No murmurs auscultated. ABDOMEN: Soft, nontender, nondistended, obese. No palpable organomegaly is noted. No rebound or guarding demonstrated. BACK: Shows spine grossly in the midline. Normal-appearing cervical lordotic curvature. There is increased thoracic kyphosis, some minor flattening of the lumbar lordotic curvature. Lumbar paraspinous muscles show symmetrical on inspection, on palpation shows some moderate tenderness diffusely throughout the upper, middle and lower distribution of the paraspinous muscles without specific trigger points, without radiation of pain. The patient has good rotational motion of the lumbar spine, both laterally as well as extension and flexion without significant difficulty. No tenderness over the spinous processes, sacrum or sacroiliac regions. EXTREMITIES: Lower extremities show deep tendon reflexes 1+ in the patellar and tendo calcaneus tendons. Motor exam is 5 on a scale of 5 with right dorsiflexion, extension, quadriceps and hamstring flexion and 5/5 on the left. Peripheral pulses are 1+ posterior tibial. No peripheral edema is noted bilaterally. Lower extremities are warm and dry to touch, equal in color and appearance. SKIN: Shows warm and dry, good turgor. No edema. No sores, rashes or bruising throughout. Procedure: Procedure: Options discussed with the patient. Patient will chart reviews her current medication regimen updated current review of systems updated today as well. We will proceed with a second in the series lumbar epidural steroid ejections today with fluoroscopic guidance. Risks were discussed including but not limited to: Bleeding, infection, possibility of epidural hematoma and subsequent neurological compromise, dural puncture, headaches, spinal cord and/or nerve damage, side effects of steroid medication, and poor results regarding pain control. Patient understands wished to proceed. Patient will return to clinic in approximately 2 weeks for follow-up was counseled as to return appointment activity level and side effects to be aware of. Medication Injected: Med Injected: Procedure is lumbar epidural steroid injection under local anesthetic using sterile prep and drape at the L4-5 level using C-arm fluoroscopic guidance in both AP and lateral views medications injected is 120 mg Depo-Medrol + 10 mL preservative-free normal saline and 2 mL contrast- condition at discharge is stable patient tolerated procedure well had no complications. Condition at Discharge: Condition at Discharge: Condition at discharge stable, patient tolerated procedure well and had no complications. EMILIANO MALDONADO MD Oct 02, 2020 11:25
== END | disposition home or self-care (01) ==
LOC: PNCL 10:10
PROVIDERS: ATTEND Anesthesiology
DX: M51.16 Intervertebral disc disorders with radiculopathy, lumbar region (principal); M48.061 Spinal stenosis, lumbar region without neurogenic claudication; M96.1 Postlaminectomy syndrome, not elsewhere classified; I25.10 Atherosclerotic heart disease of native coronary artery without angina pectoris; E78.00 Pure hypercholesterolemia, unspecified; J44.9 Chronic obstructive pulmonary disease, unspecified; M19.90 Unspecified osteoarthritis, unspecified site; Z79.82 Long term (current) use of aspirin; Z79.899 Other long term (current) drug therapy; Z90.49 Acquired absence of other specified parts of digestive tract; Z98.890 Other specified postprocedural states
CPT/HCPCS: 62323; J1030; J1040; Q9965

== ENCOUNTER → 2020-12-20 | Outpatient (CLI) | payer MEDICARE, OTHER ==
[2017-02-12 08:51] VITALS: BP 94/63
[~2020-12-20] MED LIST changes: -ISOS60TA2 PO; +ISOS60TA55 PO
--- NOTE | 2020-12-20 11:24 | PDOC ---
Progress Note - Pain Clinic Date of Service: DOS: DATE: 12/20/20 TIME: 11:21 Diagnosis: Dx: Lumbar radiculopathy lumbar degenerative disc disease lumbar spine spinal stenosis and post lumbar laminectomy syndrome History or Present Illness: HPI: 80-year-old female returns to follow-up status post lumbar epidural steroid traction x2. Last seen October 02, 2020. Patient ports doing very well about 1% improvement initially and after a few days the pain began to return to only gradually the low back and the right lower extremity. Patient reports is in the low back posterior gluteus posterior lateral thigh lateral anterior thigh anterior medial thigh medial lower leg and medial ankle as well. Patient reports is worse with with walking standing, changing positions. Patient re ports is better with sitting or laying down generally is not awaken her from sleep but can but not more frequently than every 6-7 hours if it does. Patient reports is a 10 on scale 10 is worse over the past week 6 on average to its least is a 5 today. Patient reports aching sharp dull in the back shooting in the legs mostly on the right side with tingling and pain in the right leg and stabbing sensation patient part is radiating can be severe with activity. Patient reports no new motor or sensory deficits initially she was doing much better with distance walking doing household activities and travel with greater ease and comfort. Physical Exam: VS: Blood pressure is 140/80 pulse 69 respiration 16 temperature is 98.1 F weight is 213 pounds PE: PHYSICAL EXAMINATION: GENERAL: The patient is awake, alert, oriented, appropriate, very pleasant demeanor HEENT: Shows normocephalic, atraumatic. Extraocular movements are intact and symmetrical. Oral cavity: Mucous membranes moist and pink. Dentition is intact. NECK: Shows anterior throat supple without palpable lymphadenopathy noted. Swallow reflex symmetrical. CHEST: Shows normal on inspection. Breath sounds are clear bilaterally, no rales or rhonchi. HEART: Shows S1, S2 clear. No murmurs auscultated. ABDOMEN: Soft, nontender, nondistended, obese. No palpable organomegaly is no martell. BACK: Shows spine grossly in the midline. Normal-appearing cervical lordotic curvature. There is slightly increased thoracic kyphosis, some minor flattening of the lumbar lordotic curvature. Lumbar paraspinous muscles show symmetrical on inspection, on palpation shows some moderate tenderness diffusely throughout the upper, middle and lower distribution of the paraspinous muscles, but without specific trigger points, without radiation of pain. The patient has good rotational motion of the lumbar spine, both laterally as well as extension and flexion without significant difficulty. EXTREMITIES: Lower extremities show deep tendon reflexes 1+ in the patellar and tendo calcaneus tendons. Motor exam is 5 on a scale of 5 with right dorsiflexion, extension, quadriceps and hamstring flexion and 5/5 on the left. Peripheral pulses are 1+ posterior tibial. No peripheral edema is noted bilaterally. Lower extremities are warm and dry to touch, equal in color and appearance. SKIN: Shows warm and dry, good turgor. No edema. No sores, rashes or bruising throughout. Procedure: Procedure: Options were discussed with the patient. Patient chart was reviewed as her current medication regimen updated current review of systems updated today as well. We will proceed with lumbar epidural steroid injections a third in the series today with fluoroscopic guidance. Risks were discussed including but not limited to: Bleeding, infection, possibility of epidural hematoma and subsequent neurological compromise, dural puncture, headaches, spinal cord and/or nerve damage, side effects of steroid medication, and poor results regarding pain control. Patient understands and wished to proceed. Patient will return to clinic in approximate 2 weeks for follow-up was counseled as to return appointment activity level and side effects to be aware of. Medication Injected: Med Injected: Procedure is lumbar epidural steroid injection under local anesthetic using sterile prep and drape at the L3-4 level using C-arm fluoroscopic guidance in both AP and lateral views medications injected is 120 mg Depo-Medrol + 10 mL preservative-free normal saline and 2 mL contrast- condition at discharge is stable patient tolerated procedure well had no complications. Condition at Discharge: Condition at Discharge: Condition at discharge stable, patient alert procedure well and had no complications. EMILIANO MALDONADO MD Dec 20, 2020 11:24
--- NOTE | 2020-12-20 11:25 | PDOC4 ---
PROCEDURE Procedure Patient was consented for lumbar epidural steroid injection. Risks were dis cussed including but not limited to: Bleeding, infection, possibility of epidural hematoma and subsequent neurological compromise, dural puncture, headaches, spinal cord and/or nerve damage, side effects of steroid medication, and poor results regarding pain control. Patient understands and wished to proceed. Procedure is lumbar epidural steroid injection under local anesthetic using sterile prep and drape at the L3-4 level using C-arm fluoroscopic guidance in both AP and lateral views medications injected is 120 mg Depo-Medrol + 10 mL preservative-free normal saline and 2 mL contrast- condition at discharge is stable patient tolerated procedure well had no complications. EMILIANO MALDONADO MD Dec 20, 2020 11:25
== END | disposition home or self-care (01) ==
LOC: PNCL 09:56
PROVIDERS: ATTEND Anesthesiology
DX: M51.16 Intervertebral disc disorders with radiculopathy, lumbar region (principal); M48.061 Spinal stenosis, lumbar region without neurogenic claudication; M96.1 Postlaminectomy syndrome, not elsewhere classified; I25.10 Atherosclerotic heart disease of native coronary artery without angina pectoris; E78.00 Pure hypercholesterolemia, unspecified; J44.9 Chronic obstructive pulmonary disease, unspecified; M19.90 Unspecified osteoarthritis, unspecified site; Z90.49 Acquired absence of other specified parts of digestive tract; Z98.890 Other specified postprocedural states; Z79.899 Other long term (current) drug therapy; Z79.82 Long term (current) use of aspirin
CPT/HCPCS: 62323; J1030; J1040; Q9965

== ENCOUNTER → 2021-02-21 | Outpatient (CLI) | payer MEDICARE, OTHER ==
[2017-02-12 08:51] VITALS: BP 94/63
--- NOTE | 2021-02-21 15:06 | PDOC ---
Progress Note - Pain Clinic Date of Service: DOS: DATE: 02/21/21 TIME: 15:02 Diagnosis: Dx: Lumbar radiculopathy with lumbar degenerative disease lumbar spinal stenosis and lumbar postlaminectomy syndrome History or Present Illness: HPI: 60-year-old female returns for follow-up status post lumbar epidural steroid injections x3 last seen December 20, 2020 patient reports about 90% improvement for worse about 2 months following the last injection, with pain returning now in the low back and bilateral lower extremities hips and thighs mainly anterior thighs and medial thighs right essentially equal to left but slightly more noticeable on the right side most times. Patient reports no new motor or sensory deficits no new bowel or bladder incontinence still pain described as burning and aching in the back stabbing in the back as well as aching and shooting in the lower extremities. Patient reports her pain is a 9 on scale 10 is worse over the past week 7 on average 3 at its least is a 5 today. Patient reports no new motor or sensory deficits no bowel or bladder incontinence or other complaints. Physical Exam: VS: Blood pressure is 144/89 pulse is 72 respirations 18 temperature 98.1 F height is 5 feet 6 inches weight is 209 pounds PE: PHYSICAL EXAMINATION: GENERAL: The patient is awake, alert, oriented, appropriate, very pleasant demeanor HEENT: Shows normocephalic, atraumatic. Extraocular movements are intact and symmetrical. Oral cavity: Mucous membranes moist and pink. Dentition is intact. NECK: Shows anterior throat supple without palpable lymphadenopathy noted. Swallow reflex symmetrical. CHEST: Shows normal on inspection. Breath sounds are clear bilaterally, distant but no rales rhonchi or wheezes auscultated. HEART: Shows S1, S2 clear. No murmurs auscultated. ABDOMEN: Soft, nontender, nondistended, obese. No palpable organomegaly is noted. BACK: Shows spine grossly in the midline. Normal-appearing cervical lordotic curvature. There is increased thoracic kyphosis, some minor flattening of the lumbar lordotic curvature. Lumbar paraspinous muscles show symmetrical on inspection, on palpation shows some moderate tenderness diffusely throughout the upper, middle and lower distribution of the paraspinous muscles without specific trigger points, without radiation of pain. The patient has good rotational motion of the lumbar spine, both laterally as well as extension and flexion without significant difficulty. No tenderness over the spinous processes, sacrum or sacroiliac regions. EXTREMITIES: Lower extremities show deep tendon reflexes 1+ in the patellar and tendo calcaneus tendons. Motor exam is 4 on a scale of 5 with right dorsiflexion, extension, quadriceps and hamstring flexion and 4/5 on the left. Peripheral pulses are 1+ posterior tibial. No peripheral edema is noted bilaterally. Lower extremities are warm and dry. SKIN: Shows warm and dry, good turgor. No edema. No sores, rashes or bruising throughout. Procedure: Procedure: Options discussed with the patient. Patient chart reviews her current medication regimen updated current review of systems updated today as well. We will proceed with a first in the series lumbar epidural steroid injection with fluoroscopic guidance. Risks were discussed including but not limited to: Bleeding, infection, possibility of epidural hematoma and subsequent neurological compromise, dural puncture, headaches, spinal cord and/or nerve damage, side effects of steroid medication, and poor results regarding pain control. Patient understands and wished to proceed. Patient will return to the clinic in approximately 2 weeks for follow-up, was counseled as to return appointment activity level and side effects to be aware of. Medication Injected: Med Injected: Procedure is lumbar epidural steroid injection under local anesthetic using sterile prep and drape at the L3-4 level using C-arm fluoroscopic guidance in both AP and lateral views medications injected is 120 mg Depo-Medrol + 10 mL preservative-free normal saline and 2 mL contrast- condition at discharge is stable patient tolerated procedure well had no complications. Condition at Discharge: Condition at Discharge: Condition at discharge stable, patient tolerated the procedure well and had no complications. EMILIANO MALDONADO MD February 21, 2021 15:06
--- NOTE | 2021-02-21 15:07 | PDOC4 ---
PROCEDURE Procedure Patient was consented for lumbar epidural steroid injection. Risks were dis cussed including but not limited to: Bleeding, infection, possibility of epidural hematoma and subsequent neurological compromise, dural puncture, headaches, spinal cord and/or nerve damage, side effects of steroid medication, and poor results regarding pain control. Patient understands and wished to proceed. Procedure is lumbar epidural steroid injection under local anesthetic using sterile prep and drape at the L3-4 level using C-arm fluoroscopic guidance in both AP and lateral views medications injected is 120 mg Depo-Medrol + 10 mL preservative-free normal saline and 2 mL contrast- condition at discharge is stable patient tolerated procedure well had no complications. EMILIANO MALDONADO MD February 21, 2021 15:07
== END | disposition home or self-care (01) ==
LOC: PNCL 13:59
PROVIDERS: ATTEND Anesthesiology
DX: M51.16 Intervertebral disc disorders with radiculopathy, lumbar region (principal); M48.061 Spinal stenosis, lumbar region without neurogenic claudication; M96.1 Postlaminectomy syndrome, not elsewhere classified; I25.10 Atherosclerotic heart disease of native coronary artery without angina pectoris; E78.00 Pure hypercholesterolemia, unspecified; J44.9 Chronic obstructive pulmonary disease, unspecified; M19.90 Unspecified osteoarthritis, unspecified site; Z90.49 Acquired absence of other specified parts of digestive tract; Z98.890 Other specified postprocedural states; Z79.899 Other long term (current) drug therapy; Z79.82 Long term (current) use of aspirin
CPT/HCPCS: 62323; J1030; J1040; Q9965

== ENCOUNTER → 2021-04-10 | Outpatient (CLI) | payer MEDICARE, OTHER ==
[2017-02-12 08:51] VITALS: BP 94/63
[~2021-04-10] MED LIST changes: +CYCL10TA2 PO; -IOHEXOL 180 MG/ML 10 ML VIAL. ONE; -OMEP40CA45 PO; +OMEP40CA7 PO; +TRAM50TA PO; -methylPREDNISolone ACETATE 40 MG/ML VIAL. ONE; -methylPREDNISolone ACETATE 80 MG/ML VIAL. ONE
--- NOTE | 2021-04-10 09:59 | PDOC ---
Progress Note - Pain Clinic Date of Service: DOS: DATE: 04/10/21 TIME: 09:55 Diagnosis: Dx: Lumbar radiculopathy with lumbar degenerative disease lumbar spinal stenosis and post lumbar laminectomy syndrome History or Present Illness: HPI: 61-year-old female returns for follow-up status post lumbar epidural steroid injection x1 this series, patient did very well with previous epidurals but the last one was not as successful and had a lot of pain afterwards so much that she went to the emergency room about a day later they gave her a IM shot of Toradol which did help. Patient reports that since that time the pain is been about the same in the low back the bilateral lower extremities posterior gluteus lateral thighs anterior thighs medial thighs right central equal to left patient reports the left leg has a bout of swelling in time to time but not every day patient reports pain is across the low back into the bilateral lower extremities aching sharp dull tight shooting burning cramping and stabbing can be constant with walking standing better with sitting or lying down was awakened from sleep about every 3-4 hours at night. Patient reports no new motor or sensory deficits no new bowel or bladder incontinence or other complaints. Patient is still on her Plavix currently. Physical Exam: VS: Blood pressure is 159/98 pulse 71 respirations 18 temperature 98.8 weight 220 pounds PE: PHYSICAL EXAMINATION: GENERAL: The patient is awake, alert, oriented, appropriate, very pleasant in demeanor HEENT: Shows normocephalic, atraumatic. Extraocular movements are intact and symmetrical. NECK: Shows anterior throat supple without palpable lymphadenopathy noted. Swallow reflex symmetrical. CHEST: Shows normal on inspection. Breath sounds are clear bilaterally. HEART: Shows S1, S2 clear. No murmurs auscultated. ABDOMEN: Soft, nontender, nondistended, obese. BACK: Shows spine grossly in the midline. Normal-appearing cervical lordotic curvature. There is slightly increased thoracic kyphosis, some minor flattening of the lumbar lordotic curvature. Lumbar paraspinous muscles show symmetrical on inspection, on palpation shows some moderate tenderness diffusely throughout the upper, middle and lower distribution of the paraspinous muscles, but without specific trigger points, without radiation of pain. The patient has good rotational motion of the lumbar spine, both laterally as well as extension and flexion without significant difficulty. No tenderness over the spinous processes, sacrum or sacroiliac regions. EXTREMITIES: Lower extremities show deep tendon reflexes 1 in the patellar and tendo calcaneus tendons. Motor exam is 4 on a scale of 5 with right dorsiflexion, extension, quadriceps and hamstring flexion and 4/5 on the left. Peripheral pulses are 1+ posterior tibial. No peripheral edema is noted bilaterally. Lower extremities are warm and dry . SKIN: Shows warm and dry, good turgor. No edema. No sores, rashes or bruising throughout. Procedure: Procedure: Options were discussed with patient. Patient chart was reviewed as her current medication regimen updated current review of systems updated today as well. We will proceed with ordering MRI scan lumbar spine to evaluate patient's increase in pain after last injection and continued radiculopathy bilaterally. Also patient is given Medrol Dosepak with instructions and side effects to be aware of discussed. Pending MRI scan results will have patient return for potential interventional techniques also holding Plavix 7 days prior. Patient understands and agrees. Medication Injected: Med Injected: None Condition at Discharge: Condition at Discharge: Condition at discharge is stable. EMILIANO MALDONADO MD Apr 10, 2021 09:59
== END | disposition home or self-care (01) ==
LOC: PNCL 08:52
PROVIDERS: ATTEND Anesthesiology
DX: M51.16 Intervertebral disc disorders with radiculopathy, lumbar region (principal); M48.061 Spinal stenosis, lumbar region without neurogenic claudication; M96.1 Postlaminectomy syndrome, not elsewhere classified; I25.10 Atherosclerotic heart disease of native coronary artery without angina pectoris; E78.00 Pure hypercholesterolemia, unspecified; J44.9 Chronic obstructive pulmonary disease, unspecified; M19.90 Unspecified osteoarthritis, unspecified site; Z90.49 Acquired absence of other specified parts of digestive tract; Z98.890 Other specified postprocedural states; Z79.82 Long term (current) use of aspirin; Z79.899 Other long term (current) drug therapy
CPT/HCPCS: 99212; G0463

== ENCOUNTER → 2021-04-12 | Outpatient (CLI) | payer MEDICARE, OTHER ==
[2017-02-12 08:51] VITALS: BP 94/63
--- NOTE | 2021-04-12 13:54 | RAD ---
EXAMINATION: Magnetic resonance imaging (MRI) of the lumbar spine without contrast 04/12/2021 11:23 AM HISTORY: Bilateral lumbar radiculopathy TECHNIQUE: Multiplanar multi-weighted MRI of the lumbar spine was performed without intravenous contr ast using the standard lumbar spine protocol. Contrast information: None administered. COMPARISON: None available. FINDINGS: 2 mm anterolisthesis of L3 on L4. Vertebral body heights are maintained. Modic type II endplate degen erative changes identified at L4-L5 with mild/moderate disc height loss. Conus medullaris terminates at T12-L1. Distal spinal cord signal intensity is normal in all sequences. There is clubbing of the n erve roots from L2 inferiorly suggestive of arachnoiditis. There may be mild dural thickening along t he anterior right lateral margin of the thecal sac from L2-L3 through L4-L5. L2-L3: The disc is normal in configuration. There is no facet arthropathy. There is no neuroforaminal stenosis. There is no spinal canal stenosis. L3-L4: There is a disc bulge asymmetric to the right with right foraminal and far lateral disc extrus ion. Moderate to severe facet arthropathy ligamentum flavum infolding. There is right lateral recess stenosis. Moderate spinal canal stenosis. Moderate right neuroforaminal stenosis. Progressed. L4-L5: There is a circumferential disc bulge asymmetric to the left with left far lateral disc protru robyn. Laminectomy changes decompressed the spinal canal. No residual spinal canal stenosis. There is moderate left neuroforaminal stenosis. L5-S1: Mild disc bulge. Mild/moderate facet arthropathy. No neuroforaminal or spinal canal stenosis. There is epidural lipomatosis which deforms the thecal sac. IMPRESSION: 1. Progression of degenerative disc disease at L3-L4 as described in detail above. 2. There is severe clumping of the nerve roots from L2-L3 inferiorly suggestive of arachnoiditis. Edgar benavidez are new from the prior examination from 10/07/2019. Electronically signed by: Ghada Brandon MD (04/12/2021 1:52 PM) [id number]
== END | disposition home or self-care (01) ==
LOC: MRI 11:20
PROVIDERS: ATTEND Anesthesiology
DX: M51.36 Other intervertebral disc degeneration, lumbar region (principal); M48.061 Spinal stenosis, lumbar region without neurogenic claudication; I25.10 Atherosclerotic heart disease of native coronary artery without angina pectoris; E78.00 Pure hypercholesterolemia, unspecified; J44.9 Chronic obstructive pulmonary disease, unspecified; M19.90 Unspecified osteoarthritis, unspecified site; Z79.899 Other long term (current) drug therapy; Z98.890 Other specified postprocedural states
CPT/HCPCS: 72148

== ENCOUNTER → 2021-04-27 | Outpatient (CLI) | payer MEDICARE, OTHER ==
[2017-02-12 08:51] VITALS: BP 94/63
[~2021-04-27] MED LIST changes: +CYCL10TA19 PO; -CYCL10TA2 PO; +HYDR-2761 PO; +IOHEXOL 180 MG/ML 10 ML VIAL. ONE; +methylPREDNISolone ACETATE 40 MG/ML VIAL. ONE; +methylPREDNISolone ACETATE 80 MG/ML VIAL. ONE
--- NOTE | 2021-04-27 10:24 | PDOC ---
Progress Note - Pain Clinic Date of Service: DOS: DATE: 04/27/21 TIME: : Diagnosis: Dx: Lumbar to colopathy with lumbar degenerative disease lumbar spinal stenosis with lumbar postlaminectomy syndrome History or Present Illness: HPI: 61-year-old female returns for follow-up status post lumbar epidural steroid injection x1 February. Patient did very well but had some significant pain afterwards for 2 to 3 days was improved but then ended up in the emergency room because the pain was increasing so much patient reports that the pain decreased after that time but is now in the low extremities bilaterally left and right as well as across the low back patient reports is somewhat worse on the left side currently we did do a new MRI scan and reviewed that with her today showing progression degenerative disc disease at L3-4 and L4-5 with a asymmetric disc bulge to the left with far left lateral disc protrusion L3-4 showing right lateral recess stenosis moderate spinal canal stenosis. Patient reports understanding. Patient rates her pain as a 9 on scale 10 is worse over the past week 6 on average 3 to sleep and is a 6 today patient scribes aching sharp tight burning cramping and stabbing can be constant and severe unbearable with walking standing better with sitting or laying down but generally wakes her from sleep every 2-3 hours at patient reports no new motor or sensory deficits no bowel or bladder incontinence. Physical Exam: VS: Pressure is 134/95 pulse 84 respirations 18 temperature is 90.4 F height is 5 feet 6 inches weight is 220 pounds. PE: PHYSICAL EXAMINATION: GENERAL: The patient is awake, alert, oriented, appropriate, very pleasant demeanor. HEENT: Shows normocephalic, atraumatic. Extraocular movements are intact and symmetrical. Oral cavity: Mucous membranes moist and pink. Dentition is intact. NECK: Shows anterior throat supple without palpable lymphadenopathy noted. Swallow reflex symmetrical. CHEST: Shows normal on inspection. Breath sounds are clear bilaterally. HEART: Shows S1, S2 clear. No murmurs auscultated. ABDOMEN: Soft, nontender, nondistended, obese. BACK: Shows spine grossly in the midline. Normal-appearing cervical lordotic curvature. There is slightly increased thoracic kyphosis, some minor flattening of the lumbar lordotic curvature. Lumbar paraspinous muscles show symmetrical on inspection, on palpation shows some moderate tenderness diffusely throughout the upper, middle and lower distribution of the paraspinous muscles, but without specific trigger points, without radiation of pain. The patient has good rotational motion of the lumbar spine, both laterally as well as extension and flexion without significant difficulty. No tenderness over the spinous processes, sacrum or sacroiliac regions. EXTREMITIES: Lower extremities show deep tendon reflexes 1+ in the patellar and tendo calcaneus tendons. Motor exam is 4 on a scale of 5 with right dorsiflexion, extension, quadriceps and hamstring flexion and 4/5 on the left. Peripheral pulses are good 1+ posterior tibial. No peripheral edema is noted bilaterally. Lower extremities are warm and dry to touch, equal in color and appearance. SKIN: Shows warm and dry, good turgor. No edema. No sores, rashes or bruising throughout. Procedure: Procedure: Options were discussed with patient. Patient's old chart reviews her current medication regimen updated current review of systems updated today as well. We will proceed with a second lumbar epidural steroid traction today with fluoroscopic guidance. Risks were discussed including but not limited to: Bleeding, infection, possibility of epidural hematoma and subsequent neurological compromise, dural puncture, headaches, spinal cord and/or nerve damage, side effects of steroid medication, and poor results regarding pain control. Patient understands and wished to proceed. Return to the clinic in approximate 2 weeks for follow-up, was counseled as return appointment activity level and side effects to be aware of. Medication Injected: Med Injected: Procedure is lumbar epidural steroid injection under local anesthetic using sterile prep and drape at the L3-4 level using C-arm fluoroscopic guidance in both AP and lateral views medications injected is 120 mg Depo-Medrol +10mL preservative-free normal saline and 2 mL contrast- condition at discharge is stable patient tolerated procedure well had no complications. Condition at Discharge: Condition at Discharge: Condition at discharge stable, patient already procedure well and had no complications. EMILIANO MALDONADO MD Apr 27, 2021 10:24
--- NOTE | 2021-04-27 10:25 | PDOC4 ---
Procedure Note: Procedure Note: Patient is consented for lumbar epidural steroid injection. Risks were discussed including but not limited to: Bleeding, infection, possibility of epidural hematoma and subsequent neurological compromise, dural puncture, headaches, spinal cord and/or nerve damage, side effects of steroid medication, and poor results regarding pain control. Patient understands and wished to proceed. Procedure is lumbar epidural steroid injection under local anesthetic using sterile prep and drape at the L3-4 level using C-arm fluoroscopic guidance in both AP and lateral views medications injected is 120 mg Depo-Medrol +10mL preservative-free normal saline and 2 mL contrast- condition at discharge is stable patient tolerated procedure well had no complications. EMILIANO MALDONADO MD Apr 27, 2021 10:25
== END | disposition home or self-care (01) ==
LOC: PNCL 09:33
PROVIDERS: ATTEND Anesthesiology
DX: M51.16 Intervertebral disc disorders with radiculopathy, lumbar region (principal); M48.061 Spinal stenosis, lumbar region without neurogenic claudication; M96.1 Postlaminectomy syndrome, not elsewhere classified; I25.10 Atherosclerotic heart disease of native coronary artery without angina pectoris; E78.00 Pure hypercholesterolemia, unspecified; J44.9 Chronic obstructive pulmonary disease, unspecified; M19.90 Unspecified osteoarthritis, unspecified site; Z90.49 Acquired absence of other specified parts of digestive tract; Z98.890 Other specified postprocedural states; Z79.82 Long term (current) use of aspirin; Z79.899 Other long term (current) drug therapy
CPT/HCPCS: 62323; J1030; J1040; Q9965

== ENCOUNTER → 2021-06-04 | Outpatient (CLI) | payer MEDICARE, OTHER ==
[2017-02-12 08:51] VITALS: BP 94/63
[~2021-06-04] MED LIST changes: -CYCL10TA19 PO; +CYCL10TA2 PO; -HYDR-2761 PO
--- NOTE | 2021-06-04 08:48 | PDOC4 ---
Procedure Note: ICD 10 Code: ICD 10 Code: M54.1 6 M48.07 M 96.10 Procedure Note: Patient was consented for lumbar epidural steroid injection with fluoroscopic guidance. Risks were discussed including but not limited to: Bleeding, infection, possibility of epidural hematoma and subsequent neurological compromise, dural puncture, headaches, spinal cord and/or nerve damage, side effects of steroid medication, and poor results regarding pain control. Patient understands and wished to proceed. Procedure is lumbar epidural steroid injection under local anesthetic using st erile prep and drape at the L3-4 level using C-arm fluoroscopic guidance in both AP and lateral views medications injected is 120 mg Depo-Medrol +10mL preservative-free normal saline and 2 mL contrast- condition at discharge is stable patient tolerated procedure well had no complications. EMILIANO MALDONADO MD Jun 04, 2021 08:48
--- NOTE | 2021-06-04 08:48 | PDOC ---
Progress Note - Pain Clinic Date of Service: DOS: DATE: 06/04/21 TIME: 08:45 Diagnosis: Dx: Lumbar radiculopathy with lumbar degenerative disease and lumbar spinal stenosis lumbar postlaminectomy syndrome History or Present Illness: HPI: 61-year-old female returns for follow-up status post lumbar epidural steroid injection x2 last seen April 27, 2021 patient did very well after the last injection reports 80% improvement after about a week to 2 weeks the pain began to return very slowly and gradually patient reports the pain is in the low back down the bilateral lower extremities posterior gluteus lateral thigh anterior thighs medial thighs more on the right than the left and present bilaterally worse with walking standing changing positions better with sitting or laying down generally awakens her from sleep only about once a night patient reports her pain is a 10 on scale 10 is worse over the past week 6 on average 1 its least is a 6 today patient reports she was doing much better with distance walking doing household activities sleeping much better pain beginning to return now described as burning and cramping in the back stabbing and shooting in the right lower extremity over the left present bilaterally with radiating pain is aching and dull as well on and off in intensity again better with sitting or resting and better with laying down. Patient reports no new bowel or bladder incontinence. Physical Exam: VS: Blood pressure is 157/108 pulse 77 respirations 18 temperature 98.1 F weight is 218 pounds PE: PHYSICAL EXAMINATION: GENERAL: The patient is awake, alert, oriented, appropriate, very pleasant in demeanor HEENT: Shows normocephalic, atraumatic. Extraocular movements are intact and symmetrical. Oral cavity: Mucous membranes moist and pink. Dentition is intact. NECK: Shows anterior throat supple without palpable lymphadenopathy noted. Swa llow reflex symmetrical. CHEST: Shows normal on inspection. Breath sounds are clear bilaterally, no rales rhonchi or wheezes auscultated. HEART: Shows S1, S2 clear. No murmurs auscultated. ABDOMEN: Soft, nontender, nondistended. No palpable organomegaly is noted. BACK: Shows spine grossly in the midline. Normal-appearing cervical lordotic curvature. There is slightly increased thoracic kyphosis, some minor flattening of the lumbar lordotic curvature. Lumbar paraspinous muscles show symmetrical on inspection, on palpation shows some moderate tenderness diffusely throughout the upper, middle and lower distribution of the paraspinous muscles but without specific trigger points, without radiation of pain. The patient has good rotational motion of the lumbar spine, both laterally as well as extension and flexion without significant difficulty. No tenderness over the spinous proc esses, sacrum or sacroiliac regions. EXTREMITIES: Lower extremities show deep tendon reflexes 1+ in the patellar and tendo calcaneus tendons. Motor exam is 4 on a scale of 5 with right dorsiflexion, extension, quadriceps and hamstring flexion and 4/5 on the left. Peripheral pulses are 1+ posterior tibial. No peripheral edema is noted bilaterally. Lower extremities are warm and dry. SKIN: Shows warm and dry, good turgor. No edema. No sores, rashes or bruising throughout. Procedure: Procedure: Options discussed with the patient. Patient's old chart was viewed as her current medication regimen updated current review of systems updated today as well. We will proceed with a third in the series lumbar epidural steroid injec tion today with fluoroscopic guidance. Risks were discussed including but not limited to: Bleeding, infection, possibility of epidural hematoma and subsequent neurological compromise, dural puncture, headaches, spinal cord and/or nerve damage, side effects of steroid medication, and poor results regarding pain control. Patient understands and wished to proceed. Patient will return to clinic in approximate 2 weeks for follow-up, was counseled as to return appointment activity level and side effects to be aware of. Medication Injected: Med Injected: Procedure is lumbar epidural steroid injection under local anesthetic using sterile prep and drape at the L3-4 level using C-arm fluoroscopic guidance in both AP and lateral views medications injected is 120 mg Depo-Medrol +10mL preservative-free normal saline and 2 mL contrast- condition at discharge is stable patient tolerated procedure well had no complications. Condition at Discharge: Condition at Discharge: Condition at discharge stable, patient already procedure well and had no complications. EMILIANO MALDONADO MD Jun 04, 2021 08:48
== END | disposition home or self-care (01) ==
LOC: PNCL 07:59
PROVIDERS: ATTEND Anesthesiology
DX: M51.16 Intervertebral disc disorders with radiculopathy, lumbar region (principal); M48.061 Spinal stenosis, lumbar region without neurogenic claudication; M96.1 Postlaminectomy syndrome, not elsewhere classified; I25.10 Atherosclerotic heart disease of native coronary artery without angina pectoris; J44.9 Chronic obstructive pulmonary disease, unspecified; E78.00 Pure hypercholesterolemia, unspecified; M19.90 Unspecified osteoarthritis, unspecified site; Z90.49 Acquired absence of other specified parts of digestive tract; Z98.890 Other specified postprocedural states; Z79.899 Other long term (current) drug therapy
CPT/HCPCS: 62323; J1030; J1040; Q9965

== ENCOUNTER → 2021-08-07 | Outpatient (CLI) | payer MEDICARE, OTHER ==
[2017-02-12 08:51] VITALS: BP 94/63
[~2021-08-07] MED LIST changes: -IOHEXOL 180 MG/ML 10 ML VIAL. ONE; +REGADENOSON 0.4 MG/5 ML DISP.SYRIN. IV ONE; -methylPREDNISolone ACETATE 40 MG/ML VIAL. ONE; -methylPREDNISolone ACETATE 80 MG/ML VIAL. ONE
--- NOTE | 2021-08-09 14:29 | RAD ---
MR#: [id number] Date of Study: 08/07/2021 Ordering Physician: OSMAN SALMERON, Referring Physician: SMILEY SHEPHERD Tech: SABAS Med[place]in ARRT (R) (N) APPROVED REPORT Test Type: Pharmacological Stress Nurse/Tech: Nilsa Hobbs RN Test Indications: CAD Cardiac History: Hypertension,COPD,CT 2005,PTCA 2011 Medications: See Electronic Medical Record Medical History: See Electronic Medical Record Resting ECG: SR Resting Heart Rate: 68 bpm Resting Blood Pressure: 169/84mmHg Pretest Chest Pain: No chest pain Nurse/Tech Notes S1,S2 and lungs clear to auscultation. Consent: The procedure was explained to the patient in lay terms. Informed consent was witnessed. Harley eout was entered into [employer]. History and Stress Test performed by SABAS Medellin ARRT (Anjel) (N) Pharm. Details Pharmacologic stress testing was performed using 0.4mg per 5ml of regadenoson given intravenously ove r 7-10 seconds. Stress Symptoms Nausea POST EXERCISE Reason for Termination: Infusion complete Target HR: No Max HR: 133 bpm 99% of Maximum Predicted HR: 134 bpm Max Blood Pressure: 170/86mmHg Blood Pressure response to exercise: Normal blood pressure response during stress. Heart Rate response to exercise: WNL Chest Pain: No. Arrhythmia: No. ST Change: No. INTERPRETATION Stress EKG Conclusion: The resting EKG shows a sinus rhythm with nonspecific ST-T segment changes. The stress EKG shows no significant changes from baseline. No EKG evidence of stress-induced ischemia. Imaging Protocol IMAGE PROTOCOL: Rest Tc-99m/stress Tc-99m 1 day Rest: Stress: Viability: Radiopharm.Tc99m VphqnfgslTp90p Sestamibi Dose10.6mCi 31mCi Img Date 08/07/2021 08/07/2021 Inj-Img [id number]. 60min. Rest Admin Site:IV - Left AntecubitalAdministrator:SABAS Medellin ARRT (Anjel)(N) Stress Admin Site: IV - Left AntecubitalAdministrator: Neelima Chi, SMILEYTCB, ARRT (R)(N) STRESS DATA End Diast. Vol.57.0mlLVEDV index BSA28.0ml End Syst. Vol.11.0mlLVESV index BSA5.0ml Myocardial Opwq539.0gEject. Lpfbgvtj61.0% Stress Scores Regional WT0.00Summed WT1.00 Regional WM0.00Summed WM1.00 LV Perfusion The stress images show a distal anterior apical defect. The rest images show a distal anterior apical defect. Nuclear imaging shows no reversible ischemia. Nuclear imaging shows a fixed distal anterior apical defect most consistent with a prior infarct. Wall Motion Left ventricular systolic function is intact with an ejection fraction of greater than 70%. LV Perf. Quant 17 Seg. SSS8.00 17 Seg. SRS5.00 17 Seg. SDS3.00 Stress Defect Extent (% LAD)20.60Rest Defect Extent (% LAD)18.10Rev. Defect Extent (% LAD)1.90 Stress Defect Extent (% LCX) 22.50Rest Defect Extent (% LCX)3.80Rev. Defect Extent (% LCX)12.50 Stress Defect Extent (% RCA)0.00Rest Defect Extent (% RCA)0.00Rev. Defect Extent (% RCA)0.00 Stress Defect Extent (% VIRIDIANA)15.40Rest Defect Extent (% VIRIDIANA)10.00Rev. Defect Extent (% VIRIDIANA)4.30 Conclusion 1. No EKG evidence of stress-induced ischemia. 2. Nuclear imaging shows no reversible ischemia. 3. Nuclear imaging shows a fixed distal anterior apical defect which is most consistent with a previo us infarct. 4. Left ventricular ejection fraction of greater than 70%. 5. Moderate to moderately low risk Lexiscan nuclear stress test. Signed by : Osman Salmeron MD Electronically Approved : 08/09/2021 14:28:46
== END ==
LOC: NM 09:38
PROVIDERS: ATTEND Internal Medicine Cardiovascular Disease
DX: I25.10 Atherosclerotic heart disease of native coronary artery without angina pectoris (principal); R11.0 Nausea
CPT/HCPCS: 78452; 93017; A9500; J2785

== ENCOUNTER → 2021-08-13 | Outpatient (CLI) | payer MEDICARE, OTHER ==
[2017-02-12 08:51] VITALS: BP 94/63
[~2021-08-13] MED LIST changes: +CYCL10TA19 PO; -CYCL10TA2 PO; -REGADENOSON 0.4 MG/5 ML DISP.SYRIN. IV ONE
--- NOTE | 2021-08-13 09:39 | PDOC ---
Progress Note - Pain Clinic Date of Service: DOS: DATE: 08/13/21 TIME: 09:36 Diagnosis: Dx: Lumbar radiculopathy with lumbar degenerative disc disease lumbar spinal stenosis lumbar postlaminectomy syndrome History or Present Illness: HPI: 61-year-old female returns status post lumbar epidural steroid injections with good results about 7075% improvement pain returning down the low back and bilateral lower extremities patient reports she is recently seen her neurosurgeon who is recommending no surgery at this time and is recommending a spinal cord stimulator trial. Patient reports significant pain low back bilateral lower extremities right greater than left posterior gluteus posterior lateral thigh posterior calf anterior thigh anteromedial thigh medial lower leg and into the lateral lower leg and calf on the right side as well patient reports burning stabbing aching sharp and dull in the back radiating cramping and shooting in the right lower extremity worse with walking standing changing positions better with sitting or laying down no motor loss but significant fatigability in the right lower extremity with ambulation. Patient reports it wakes her from sleep about once or twice at night does not affect her bowel bladder control. Physical Exam: VS: Blood pressure is 178/85 pulse 88 respirations 16 temperature 98.6 F height is 5 feet 6 inches weight is 218 pounds PE: PHYSICAL EXAMINATION: GENERAL: The patient is awake, alert, oriented, appropriate, very pleasant in demeanor HEENT: Shows normocephalic, atraumatic. Extraocular movements are intact and symmetrical. Oral cavity: Mucous membranes moist and pink. Dentition is intact. NECK: Shows anterior throat supple without palpable lymphadenopathy noted. Swallow reflex symmetrical. CHEST: Shows normal on inspection. Breath sounds are clear bilaterally, no rales rhonchi or wheezes auscultated. HEART: Shows S1, S2 clear. No murmurs auscultated. ABDOMEN: Soft, nontender, nondistended, obese. No palpable organomegaly is noted. BACK: Shows spine grossly in the midline. Normal-appearing cervical lordotic curvature. There is slightly increased thoracic kyphosis, some minor flattening of the lumbar lordotic curvature. Lumbar paraspinous muscles show symmetrical on inspection, on palpation shows some moderate tenderness diffusely throughout the upper, middle and lower distribution of the paraspinous muscles, but without specific trigger points, without radiation of pain. The patient has good rotational motion of the lumbar spine, both laterally as well as extension and flexion without significant difficulty. EXTREMITIES: Lower extremities show deep tendon reflexes 1+ in the patellar and tendo calcaneus tendons. Motor exam is 4 on a scale of 5 with right dorsiflexion, extension, quadriceps and hamstring flexion and 4/5 on the left. Peripheral pulses are 1+ posterior tibial. No peripheral edema is noted bilaterally. Lower extremities are warm and dry to touch, equal in color and appearance. SKIN: Shows warm and dry, good turgor. No edema. No sores, rashes or bruising throughout. Procedure: Procedure: Options were discussed with the patient. Patient's old chart was reviewed with her current medication regimen updated current review of systems updated today as well. We will proceed with psychiatric evaluation and preauthorization for spinal cord stimulator temporary leads placement. In the meantime, patient will be given prescription for Norflex 100 mg with instructions side effects beware of discussed. Patient will return to clinic in approximate 2 weeks as scheduled. Medication Injected: Med Injected: None Condition at Discharge: Condition at Discharge: Condition at discharge is stable. EMILIANO MALDONADO MD Aug 13, 2021 09:39
--- NOTE | 2021-09-03 15:21 | FMN ---
PT PROBLEMS Addendum for visit of August 13, 2021.. Patient has been sent for psychiatric evaluation which is pending for preauthorization for spinal cord stimulator temporary leads placement. 61-year-old female status post previous lumbar epidural steroid injections and returning radicular pain in the low back and bilateral lower extremities recently evaluated with her neurosurgeon recommending spinal cord stimulator trial. Patient had had physical therapy 11 months ago, beginning October 2019, and has been performing the activities and stretching strengthening exercises since that time consistently as this has helped but only very minimally. Patient again reported significant low back pain bilateral lower extremity pain right greater than left. EMILIANO MALDONADO MD Sep 03, 2021 15:21
== END | disposition home or self-care (01) ==
LOC: PNCL 08:54
PROVIDERS: ATTEND Anesthesiology
DX: M51.16 Intervertebral disc disorders with radiculopathy, lumbar region (principal); M48.061 Spinal stenosis, lumbar region without neurogenic claudication; M96.1 Postlaminectomy syndrome, not elsewhere classified; I25.10 Atherosclerotic heart disease of native coronary artery without angina pectoris; E78.00 Pure hypercholesterolemia, unspecified; J44.9 Chronic obstructive pulmonary disease, unspecified; M19.90 Unspecified osteoarthritis, unspecified site; Z79.82 Long term (current) use of aspirin; Z79.899 Other long term (current) drug therapy; Z98.890 Other specified postprocedural states
CPT/HCPCS: 99212; G0463

== ENCOUNTER → 2021-08-28 | Outpatient (CLI) | payer MEDICARE, OTHER ==
[2017-02-12 08:51] VITALS: BP 94/63
[~2021-08-28] MED LIST changes: +IOHEXOL 180 MG/ML 10 ML VIAL. ONE; +methylPREDNISolone ACETATE 40 MG/ML VIAL. ONE; +methylPREDNISolone ACETATE 80 MG/ML VIAL. ONE
--- NOTE | 2021-08-28 09:47 | PDOC ---
Progress Note - Pain Clinic Date of Service: DOS: DATE: 08/28/21 TIME: 09:44 Diagnosis: Dx: Lumbar to colopathy with lumbar degenerative disc disease and lumbar spinal stenosis and lumbar postlaminectomy syndrome History or Present Illness: HPI: 61-year-old female returns for follow-up status post evaluation and preauthorization pending for spinal cord stimulator temporary leads placement. Patient reports pain is increased in the low back specially in the right leg right posterior gluteus lateral thigh anterior thigh medial thigh into the groin as well worse with walking standing changing positions and weightbearing patient reports is getting much worse over the past few weeks called last week for appointment today. Patient reports is worse with standing walking changing positions waking from sleep at night rated as a 10 on scale 10 is worst 7 on average for its least over the past week is a 7 [address] aching sharp dull tight shooting burning cramping stabbing into the right lower extremity can be severe and unbearable with weightbearing as well. Patient reports no loss of motor function but significant fatigability of the right leg compared to the left. Physical Exam: VS: Blood pressure is 150/83 pulse 77 respirations are 20 temperature 97.9 F height is 5 feet 6 inches weight is 214 pounds PE: PHYSICAL EXAMINATION: GENERAL: The patient is awake, alert, oriented, appropriate, very pleasant in demeanor HEENT: Shows normocephalic, atraumatic. Extraocular movements are intact and symmetrical. Oral cavity: Mucous membranes moist and pink. Dentition is intact. NECK: Shows anterior throat supple without palpable lymphadenopathy noted. Swallow reflex symmetrical. CHEST: Shows normal on inspection. Breath sounds are clear bilaterally, distant but no rales or rhonchi. HEART: Shows S1, S2 clear. No murmurs auscultated. ABDOMEN: Soft, nontender, nondistended, obese. No palpable organomegaly is noted. BACK: Shows spine grossly in the midline. Normal-appearing cervical lordotic curvature. There is slightly increased thoracic kyphosis, some minor flattening of the lumbar lordotic curvature. Lumbar paraspinous muscles show symmetrical on inspection, on palpation shows some moderate tenderness diffusely throughout the upper, middle and lower distribution of the paraspinous muscles, but without specific trigger points, without radiation of pain. The patient has good rotational motion of the lumbar spine, both laterally as well as extension and flexion without significant difficulty. EXTREMITIES: Lower extremities show deep tendon reflexes 1+ in the patellar and tendo calcaneus tendons. Motor exam is 4 on a scale of 5 with right dorsiflexion, extension, quadriceps and hamstring flexion and 4/5 on the left. Peripheral pulses are 1+ posterior tibial. No peripheral edema is noted bilaterally. Lower extremities are warm and dry. SKIN: Shows warm and dry, good turgor. No edema. No sores, rashes or bruising throughout. Procedure: Procedure: Options were discussed with the patient. Patient chart reviewed his current medication regimen updated current review of systems updated today as well. We will proceed with a lumbar epidural steroid injection today with fluoroscopic guidance. Risks were discussed including but not limited to: Bleeding, infection, possibility of epidural hematoma and subsequent neurological compromise, dural puncture, headaches, spinal cord and/or nerve damage, side effects of steroid medication, and poor results regarding pain control. Patient understands and wished to proceed. Patient return to clinic in approximately 2 weeks for follow-up, was counseled as return appointment, activity level, and side effect to be aware of. Medication Injected: Med Injected: Procedure is lumbar epidural steroid injection under local anesthetic using sterile prep and drape at the L3-4 level using C-arm fluoroscopic guidance in both AP and lateral views medications injected is 120 mg Depo-Medrol +10mL preservative-free normal saline and 2 mL contrast- condition at discharge is stable patient tolerated procedure well had no complications. Condition at Discharge: Condition at Discharge: Condition at discharge is stable, patient tolerated the procedure well and had no complications. EMILIANO MALDONADO MD Aug 28, 2021 09:47
--- NOTE | 2021-08-28 09:56 | PDOC4 ---
Procedure Note: ICD 10 Code: ICD 10 Code: M54.16 M 4 8.06 M51.36 Procedure Note: Patient was consented for lumbar epidural steroid injection with fluoroscopic guidance. Risks were discussed including but not limited to: Bleeding, infection, possibility of epidural hematoma and subsequent neurological compromise, dural puncture, headaches, spinal cord and/or nerve damage, side effects of steroid medication, and poor results regarding pain control. Patient understands and wished to proceed. Procedure is lumbar epidural steroid injection under local anesthetic using st erile prep and drape at the L3-4 level using C-arm fluoroscopic guidance in both AP and lateral views medications injected is 120 mg Depo-Medrol +10mL preservative-free normal saline and 2 mL contrast- condition at discharge is stable patient tolerated procedure well had no complications. EMILIANO MALDONADO MD Aug 28, 2021 09:56
== END | disposition home or self-care (01) ==
LOC: PNCL 09:07
PROVIDERS: ATTEND Anesthesiology
DX: M51.16 Intervertebral disc disorders with radiculopathy, lumbar region (principal); M48.061 Spinal stenosis, lumbar region without neurogenic claudication; M96.1 Postlaminectomy syndrome, not elsewhere classified; I25.10 Atherosclerotic heart disease of native coronary artery without angina pectoris; E78.00 Pure hypercholesterolemia, unspecified; J44.9 Chronic obstructive pulmonary disease, unspecified; M19.90 Unspecified osteoarthritis, unspecified site; Z79.82 Long term (current) use of aspirin; Z79.899 Other long term (current) drug therapy; Z98.890 Other specified postprocedural states
CPT/HCPCS: 62323; J1030; J1040; Q9965

== ENCOUNTER → 2021-09-25 | Outpatient (CLI) | payer MEDICARE, OTHER ==
[2017-02-12 08:51] VITALS: BP 94/63
[~2021-09-25] MED LIST changes: +HYDR-2761 PO; -IOHEXOL 180 MG/ML 10 ML VIAL. ONE; +LIDOCAINE 1% PF 2 ML VIAL. ONE; -methylPREDNISolone ACETATE 40 MG/ML VIAL. ONE; -methylPREDNISolone ACETATE 80 MG/ML VIAL. ONE
--- NOTE | 2021-09-25 15:15 | PDOC ---
Progress Note - Pain Clinic Date of Service: DOS: DATE: 09/25/21 TIME: 15:12 Diagnosis: Dx: Lumbar radiculopathy with lumbar degenerative disease lumbar spinal stenosis and lumbar postlaminectomy syndrome History or Present Illness: HPI: 61-year-old female returns for follow-up for spinal cord stimulator placement. Patient reports still significant pain in the low back bilateral lower extremities posterior gluteus posterior thighs and across the low back more on the right than the left and present bilaterally posterior lateral thigh anterior thigh medial thigh on the right into the calf on the right side as well patient reports aching sharp dull tight shooting burning cramping in the back stabbing radiating the lower extremity severe on the right side compared to the left patient reports is a 10 on scale 10 is worse over the past week 6 on average for its least is a 7 today. Patient reports no new bowel or bladder incontinence no motor loss but significant fatigability the right lower extremity with ambulation. Physical Exam: VS: Blood pressure is 157/96 pulse 79 respirations 16 temperature is 98.0 F weight is 214 pounds. PE: PHYSICAL EXAMINATION: GENERAL: The patient is awake, alert, oriented, appropriate, very pleasant in demeanor, patient [place] by her . HEENT: Shows normocephalic, atraumatic. Extraocular movements are intact and sy mmetrical. Oral cavity: Mucous membranes moist and pink. NECK: Shows anterior throat supple without palpable lymphadenopathy noted. Swallow reflex symmetrical. CHEST: Shows normal on inspection. Breath sounds are clear bilaterally. HEART: Shows S1, S2 clear. No murmurs auscultated. ABDOMEN: Soft, nontender, nondistended. No palpable organomegaly is noted. BACK: Shows spine grossly in the midline. Normal-appearing cervical lordotic curvature. There is slightly increased thoracic kyphosis, some minor flattening of the lumbar lordotic curvature. Lumbar paraspinous muscles show symmetrical on inspection, on palpation shows some moderate tenderness diffusely throughout the upper, middle and lower distribution of the paraspinous muscles, but without specific trigger points, without radiation of pain. The patient has good rotational motion of the lumbar spine, both laterally as well as extension and flexion with only mild tenderness with extension and forward flexion as well as right left rotation at 10 degrees. No tenderness over the spinous processes, sacrum or sacroiliac regions. EXTREMITIES: Lower extremities show deep tendon reflexes 1 in the patellar and tendo calcaneus tendons. Motor exam is 4 on a scale of 5 with right dorsiflexion, extension, quadriceps and hamstring flexion and 4/5 on the left. Peripheral pulses are 1+ posterior tibial. No peripheral edema is noted bi laterally. Lower extremities are warm and dry. SKIN: Shows warm and dry, good turgor. No edema. No sores, rashes or bruising throughout. Procedure: Procedure: Options were discussed with the patient. Patient's old chart was reviewed as her current medication regimen updated current view of systems updated today as well. We will proceed with spinal cord stimulator temporary lead placement x2 with fluoroscopic guidance. Risks were discussed including but not limited to: Bleeding, infection, possibility of epidural hematoma and subsequent neurological compromise, dural puncture, headaches, spinal cord and/or nerve damage, and poor results regarding pain control. Patient understands and wished to proceed. Patient return to clinic in approximate 1 week for removal of temporary leads and reassessment of patient's pain at that time. Medication Injected: Med Injected: Under sterile prep and drape patient in prone position using C-arm fluoroscopic guidance patient's lumbar spine was identified and vertebral levels were counted did put external marker on the T8 level. This time the lumbar spine was revisualized and using 1% lidocaine, the area over the L4-5 level was anesthetized and then using a 14-gauge JetPaytead needle with stylette was entered to the epidural space at the L3-4 level using a paramedian approach to the right with preservative-free normal saline fffn-zw-fbuccwwfxs technique aspiration was noted to be negative and using direct fluoroscopy visualization spinal cord stimulator lead was then advanced without significant resistance in the midline and confirmed posterior with both AP and lateral views, and advanced to the superior endplate of the T8 vertebral level superimposed with the superior spinal cord stimulator electrode lead. Fluoroscopy was used in a lateral view to verify posterior placement in the epidural space at this point as well. At this time a second lead was then introduced in similar fashion at the L4-5 level and inserted and in the epidural space at the L2-3 level once again with preservative-free normal saline nyme-dw-tuclmawffv technique. Aspiration was again noted to be negative and using direct visualization with fluoroscopy second lumbar spinal cord stimulator lead was advanced without significant resistance in the midline with the superior electrode superimposed over the superior endplate of the T9 vertebral body. Lateral visualization was again confirmed with placement of the stimulator in the posterior epidural space. At this time the needles and stylette were removed with intermittent fluoroscopic visualization maintaining that the leads had not moved during this process and this was confirmed. This time 1% lidocaine was used to anesthetize the skin next to the insertion sites of the stimulator wires and using a 2-0 silk were then sutured in place. Mastisol and Tegaderm was then applied as well as reinforcing tape and gauze. Patient was transferred to the recovery area under his own power walking without difficulty and had no immediate complications from the procedure. Stimulation was then carried out with Elinor matthews. P atient will return to the clinic in approximately 1 week for removal of the temporary leads and reassessment of the patient's pain level. Condition at Discharge: Condition at Discharge: Condition at discharge stable, paced tolerated procedure well and had no complications. EMILIANO MALDONADO MD Sep 25, 2021 15:15
== END | disposition home or self-care (01) ==
LOC: PNCL 13:43
PROVIDERS: ATTEND Anesthesiology
DX: M51.16 Intervertebral disc disorders with radiculopathy, lumbar region (principal); M48.061 Spinal stenosis, lumbar region without neurogenic claudication; M96.1 Postlaminectomy syndrome, not elsewhere classified; I25.10 Atherosclerotic heart disease of native coronary artery without angina pectoris; I10 Essential (primary) hypertension; E78.00 Pure hypercholesterolemia, unspecified; M19.90 Unspecified osteoarthritis, unspecified site; J44.9 Chronic obstructive pulmonary disease, unspecified; Z79.82 Long term (current) use of aspirin; Z79.899 Other long term (current) drug therapy; Z98.890 Other specified postprocedural states
CPT/HCPCS: 63650; C1897; J3490

== ENCOUNTER → 2021-10-02 | Outpatient (CLI) | payer MEDICARE, OTHER ==
[2017-02-12 08:51] VITALS: BP 94/63
[~2021-10-02] MED LIST changes: -LIDOCAINE 1% PF 2 ML VIAL. ONE
--- NOTE | 2021-10-02 12:47 | PDOC ---
Progress Note - Pain Clinic Date of Service: DOS: DATE: 10/02/21 TIME: 12:42 Diagnosis: Dx: Lumbar radiculopathy with lumbar degenerative disease lumbar spinal stenosis and lumbar postlaminectomy syndrome History or Present Illness: HPI: 61-year-old female returns for follow-up status post spinal cord stimulator temporary leads placement x1 week. Patient returns today reporting about 90% improvement with the stimulator trial and is very pleased with her progress. Patient reports pain in the low back is significantly controlled very minimal earlier in the week when some programming was still going on with the stimulator was a 7 on scale 10 at its worst 3 on average 0 its least is a 1 today patient reports she is very pleased with her success with the stimulator trial has been increasing activities greater ease and comfort sleeping better has been decreasing any oral analgesics that she was previously taking as increased activity to the best of her extent with the temporary leads significantly. Patient reports still some burning and cramping in the back stabbing at times aching in the low back as well but much improved. Patient reports he is sleep ing well does not awaken her from sleep at night and is doing much better. Patient reports no new bowel or bladder incontinence. Physical Exam: VS: Blood pressure is 161/95 pulse 91 respirations 18 temperature 98.5 F height 5 feet 6 inches weight is 212 pounds PE: PHYSICAL EXAMINATION: GENERAL: The patient is awake, alert, oriented, appropriate, very pleasant in demeanor HEENT: Shows normocephalic, atraumatic. Extraocular movements are intact and s ymmetrical. Oral cavity: Mucous membranes moist and pink. Dentition is intact. NECK: Shows anterior throat supple without palpable lymphadenopathy noted. Swallow reflex symmetrical. CHEST: Shows normal on inspection. Breath sounds are clear bilaterally. HEART: Shows S1, S2 clear. No murmurs auscultated. ABDOMEN: Soft, nontender, nondistended. No palpable organomegaly is noted. BACK: Shows spine grossly in the midline. Normal-appearing cervical lordotic curvature. There is slightly increased thoracic kyphosis, some minor flattening of the lumbar lordotic curvature. Lumbar paraspinous muscles show symmetrical on inspection, on palpation shows some moderate tenderness diffusely throughout the upper, middle and lower distribution of the paraspinous muscles without specific trigger points, without radiation of pain. The patient has good rotational motion of the lumbar spine, both laterally as well as extension and flexion without significant difficulty. Temporary spinal cord stimulator leads x2 intact wound clean and dry no erythema no exudate under sterile prep and drape sutures were removed and leads removed x2 with tips intact. Site clean and dry was sterilely bandaged. EXTREMITIES: Lower extremities show deep tendon reflexes 1+ in the patellar and tendo calcaneus tendons. Motor exam is 4 on a scale of 5 with right dorsiflexion, extension, quadriceps and hamstring flexion and 4/5 on the left. Peripheral pulses are 1 posterior tibial. No peripheral edema is noted bilaterally. Lower extremities are warm and dry to touch, equal in color and appearance. SKIN: Shows warm and dry, good turgor. No edema. No sores, rashes or bruising throughout. Procedure: Procedure: Options discussed with the patient. Patient chart reviews her current medication regimen updated current review of systems updated today as well. We will remove patient's spinal cord stimulator leads under sterile technique with leads removed x2 with tips intact. Site clean and dry no erythema no drainage no tenderness. We will make arrangements for patient to have permanent stimulator system implanted. Medication Injected: Med Injected: None Condition at Discharge: Condition at Discharge: Condition at discharge is stable. EMILIANO MALDONADO MD Oct 02, 2021 12:47
== END | disposition home or self-care (01) ==
LOC: PNCL 11:21
PROVIDERS: ATTEND Anesthesiology
DX: M51.16 Intervertebral disc disorders with radiculopathy, lumbar region (principal); M48.061 Spinal stenosis, lumbar region without neurogenic claudication; M96.1 Postlaminectomy syndrome, not elsewhere classified; I25.10 Atherosclerotic heart disease of native coronary artery without angina pectoris; J44.9 Chronic obstructive pulmonary disease, unspecified; E78.00 Pure hypercholesterolemia, unspecified; M19.90 Unspecified osteoarthritis, unspecified site; Z79.82 Long term (current) use of aspirin; Z79.899 Other long term (current) drug therapy; Z90.49 Acquired absence of other specified parts of digestive tract; Z98.890 Other specified postprocedural states
CPT/HCPCS: 99212; G0463